=== PATIENT | male | born 1945 | race Caucasian/White ===

== ENCOUNTER 2017-07-28 06:53 | Observation (INO) ==
[2017-07-28] MEDS ORDERED: DOXOrubicin HCL 200 MG/100 ML MLS IV SCH (08:00)
[2017-07-28] MEDS ORDERED: *HR* FentaNYL (PF) 100 MCG/2 ML VIAL IVP ONE (08:04)
[2017-07-28] MEDS ORDERED: Levofloxacin 500 MG/100 ML 500 MG/100 ML BAG IVPB ONE (08:04)
[2017-07-28] MEDS ORDERED: *HR* Midazolam HCl 2 MG/2 ML VIAL IVP ONE (08:04)
[2017-07-28 08:17] LABS: Basophils % 0.2 %; Hematocrit 40.7 % (37.5-50.1); Hemoglobin 13.5 g/dL (12.9-16.9); Immature Granulocytes % 0.6 % (0-4); Lymphocytes # 0.9 K/mcL (0.6-4.6); Mean Corpuscular HGB Conc 33.2 g/dL (31.6-35.5); Mean Corpuscular Hemoglobin 31.6 pg (28.0-33.3); Mean Corpuscular Volume 95.3 fL (83.0-100.0); Mean Platelet Volume 11.1 fL (9.4-12.4); Monocytes # 0.1 K/mcL (0.0-1.3); Monocytes % 0.9 %; Red Blood Count 4.27 M/mcL (4.19-5.50); Red Cell Distribution Width 14.2 % (11.5-14.5); Segmented Neutrophils % 82.3 %
[2017-07-28 08:19] LABS: Neutrophils # 4.4 K/mcL (1.6-8.9); Platelet Count 69 K/mcL (140-400)
[2017-07-28 08:25] LABS: INR 1.4; Prothrombin Time 14.8 Seconds (9.4-12.1)
[2017-07-28 08:32] LABS: Albumin 4.2 g/dL (3.5-5.7); Albumin/Globulin Ratio 1.4 (1.1-2.2); Bilirubin,Direct 0.4 mg/dL (0.0-0.2); Bilirubin,Indirect 0.8 mg/dL (0.0-1.2); Bilirubin,Total 1.2 mg/dL (0.3-1.0); Globulin 3.1 g/dL (2.4-3.5); Total Protein 7.3 g/dL (6.4-8.9)
[2017-07-28] MEDS ORDERED: Heparin 1,000 UNITS/500 mL 500 ML ONE (08:32)
[2017-07-28] MEDS ORDERED: 0.9 % Sodium Chloride 500 ML ONE ×2 (08:32→09:01)
[2017-07-28] MEDS ORDERED: 0.9 % Sodium Chloride 1,000 ML ONE (08:50)
[2017-07-28] MEDS ORDERED: Isovue-300 50 ML VIAL IVP ONE (10:26)
[2017-07-28] MEDS ORDERED: Naloxone 0.4 MG/ML INJ IVP PRN (11:28)
[2017-07-28] MEDS ORDERED: Dextrose Gel 15 GM/37.5 ML TUBE PO PRN ×2 (11:36)
[2017-07-28] MEDS ORDERED: D5% in Water 1,000 ML IVC PRN (11:36)
[2017-07-28] MEDS ORDERED: *HR* Dextrose 50 % in Water (Syg) 50 ML SYRINGE IVP PRN (11:36)
--- NOTE | 2017-07-28 11:42 | Internal Med History&Physical ---
<Marychuy Swain Jailene - Last Filed: 07/28/17 12:25> Date of Encounter: 07/28/17 Time of Encounter: 11:39 Internal Medicine - H&P: HPI Chief complaint: TACE procedure Admitted From: Home Plans for Post Hospital Care: Home History of present illness: Mr. Crouch is a 71 year old male with hx of CAD, vitamin B12 and iron deficiency, CKD hepatic CA, myelodysplastic syndrome, DM, syncope, gout, hypertension, heart failure, cirrhosis with portal htn and aortic valve replacement in 2014. The patient was scheduled for TACE procedure for treatment of his hepatocellular Cancer. The patient is lying supine after the procedure and is comfortable. The right groin is with a 2x2 guaze and opsite. There is no bruising, erythema or drainage, the area is soft. Dorsalis pedis and posterior tibal pulses are intact. The patient is alert and oriented x 3. Resp are easy. EKG showed sinus rhythm with a left anterior fasicular block and an ant/lat TX of undetermined age, rate was 78. The patient ordered supine until 1500. Will resume diet at that time. Patient indicated that he had a fall in the winter , last year and has not been the same. He reports unresolved neck and back pain since that time. The patient indicated that he broke 1 rib thanks that time. The patient has hx of CKD, will get CMP now. History of HF, will get bnp in am. The patient has notable edema to bilat lower ext. Lungs are clear. Gentle IVF' s. Past Med Surg Social Fam HX - Past Medical History Medical history: cirrhosis, CHF, coronary artery disease, diabetes, GERD, hyperlipidemia, hypertension, myocardial infarction, valvular heart disease, other Additional medical history: MDS, Thrombocytopenia Psychiatric history: anxiety - Past Surgical History Surgical History: angioplasty/stent Additional surgical history: STAS CAROTID ENDARTECTOMY, CABG X2, AORTIC VALVE REPLACED - Social History Smoking Status: Never smoker Smokeless Tobacco Status: No Alcohol use: none Drug use: none Internal Medicine - H&P: Meds RX: Cholecalciferol (Vitamin D3) [Vitamin D] 1,000 unit PO BID 11/21/14 [History ] RX: Insulin Aspart Prot/Insuln Asp [Novolog Mix 70-30 Flexpen Syrn] 43 unit SQ DAILY 11/21/14 [History] RX: Nitroglycerin [Nitrostat] 0.4 mg SL PRN PRN 11/21/14 [History] RX: Nadolol 20 mg PO DAILY 04/07/15 [History] RX: diazePAM [Valium] 5 mg PO BID PRN 06/21/15 [History] RX: Isosorbide DInitrate [Isosorbide Dinitrate] 30 mg PO BID 02/15/17 [History] RX: Docusate [Colace] 100 mg PO BID PRN capsule 02/19/17 [Rx] RX: Lidocaine Patch [Lidoderm 5% patch] 2 each TP DAILY adh..patch 02/19/17 [Rx ] Captopril [Capoten] 25 mg PO BID 04/15/17 [History] Potassium Chloride [Klor-Con 10] 10 meq PO DAILY 04/15/17 [History] RX: Promethazine [Phenergan] 50 mg PO DAILY #2 tablet 05/13/17 [Rx] 3 Allergy/AdvReac Type Severity Reaction Status Date / Time carvedilol [From Coreg] Allergy Unknown Gastrointestinal Verified 06/18/17 12:03 Upset Penicillins Allergy Unknown Blister Verified 06/18/17 12:03 atenolol Allergy Rash Verified 06/18/17 12:03 All Systems PM: A 10-system review of systems was performed and is negative for pertinent findings except as documented above in the HPI. - Constitutional Constitutional: no chills, no fever(s), no night sweats - EENT Eyes: no change in vision, no discharge, no pain, no photophobia Ears: no ear discharge, no ear pain, no tinnitus Nose, mouth and throat: no dysphagia, no nasal discharge, no neck pain, no sore throat - Cardiovascular Cardiovascular ROS IM: no chest pain, no diaphoresis, no dyspnea, no lightheadedness, no palpitations, no syncope - Respiratory Respiratory: no cough, no dyspnea, no wheezing, no excessive phlegm production - Gastrointestinal Gastrointestinal: no abdominal pain, no diarrhea, no hematemesis, no hematochezia, no melena, no nausea, no vomiting - Musculoskeletal Musculoskeletal ROS IM: no numbness, no tingling - Integumentary Integumentary IM: no rash, no unusual bruising - Neurological Neurological ROS: no confusion, no convulsions, no focal weakness, no numbness, no tingling, no tremor(s) - Hematologic/Lymphatic Hematologic/Lymphatic: no easy bruising - Constitutional Vitals: Temp Pulse Resp BP Pulse Ox 97.9 F 88 16 144/79 93 07/28/17 11:03 07/28/17 11:03 07/28/17 11:03 07/28/17 11:03 07/28/17 11:03 General appearance: Present: A&O X 3 - Head Head exam: Present: atraumatic, normocephalic - Eye Eye exam: Present: PERRL, conjuntiva pink, sclera anicteric Pupils: Present: PERRL - Neck Neck exam general surgery: Present: supple, trachea midline. Absent: lymphadenopathy - Respiratory Respiratory exam: Present: CTAB. Absent: accessory muscle use, rales, rhonchi, wheezes - Cardiovascular Cardiovascular exam: Present: RRR, +S1, +S2. Absent: diastolic murmur, gallop, rubs, systolic murmur - GI/Abdominal GI/Abdominal exam: Present: normal bowel sounds, soft, no peritoneal signs. Absent: distended, tenderness - Extremities Exam Extremities exam: Present: normal inspection (Right groin with d/d , no drainage ), pedal edema (1-2+ pitting edema), warm, radial pulses palpable and symmetrical. Absent: calf tenderness, cyanotic - Neurological Exam Neurological exam: Present: CN II-XII intact, oriented X3, no focal deficits. Absent: pronater drift, facial droop, speech deficit - Skin Skin exam: Present: dry, intact Internal Med - H&P Results - Labs CBC & Chem 7: 07/28/17 08:04 Labs: Short CBC 07/28/17 Range/Units 08:04 WBC 5.4 (4.3-11.1) K/mcL Hgb 13.5 (12.9-16.9) g/dL Hct 40.7 (37.5-50.1) % Plt Count 69 L (140-400) K/mcL Neutrophils # 4.4 (1.6-8.9) K/mcL Liver Function 07/28/17 Range/Units 08:04 Total Bilirubin 1.2 H (0.3-1.0) mg/dL Direct Bilirubin 0.4 H (0.0-0.2) mg/dL AST 25 (13-39) Units/L ALT 15 (7-52) Units/L Alkaline Phosphatase 63 (34-104) Units/L Albumin 4.2 (3.5-5.7) g/dL - Assessment and plan (1) Hepatocellular carcinoma Current Visit: Yes Status: Acute Assessment and plan: TACE procedure with IR today-Right groin entry wound with D/D. Supine until 1500 Pain control-Oxycodone po prn Q4H (2) CKD (chronic kidney disease) stage 3, GFR 30-59 ml/min Current Visit: No Status: Chronic Assessment and plan: Will get cmp now Monitor daily labs Last creat was 1.31, and bun 32 on (07/16/2017) (3) HTN (hypertension) Current Visit: No Status: Acute Assessment and plan: Bp is 144/79, marginally uncontrolled, Home meds:Nadalol Goal is less than 140/80 Qualifiers: Hypertension type: essential hypertension Qualified Code(s): I10 - Essential (primary) hypertension (4) Chronic diastolic heart failure Current Visit: No Status: Chronic Assessment and plan: BNP in am Bilat lower extremity edema is present, the patient ls are clear at this time gentle IVF's (5) Cirrhosis Current Visit: Yes Status: Chronic Assessment and plan: Continue outpatient mgmt. Monitor daily labs while inpatient Qualifiers: Hepatic cirrhosis type: alcoholic cirrhosis Ascites presence: unspecified Qualified Code(s): K70.30 - Alcoholic cirrhosis of liver without ascites (6) Diabetes Current Visit: Yes Status: Chronic Assessment and plan: DM is uncontrolled. The patient bs was 260 on arrival AC/HS blood sugars, Humalog-insulin with moderate sliding scale coverage. Monitor daily labs Get HGB A1C in am Qualifiers: Diabetes mellitus type: type 2 Diabetes mellitus half-way insulin use: with terminal supervisor use Diabetes mellitus complication status: with unspecified complications Qualified Code(s): E11.8 - Type 2 diabetes mellitus with unspecified complications; Z79.4 - truck terminal manager (current) use of insulin - Time Spent With Patient Total time spent is greater than 50% in coordination of care (as documented) at patient's floor/unit and/or counseling patient: 25 - 35 minutes <Hiren Vincent - Last Filed: 07/28/17 13:33> Date of Encounter: 07/28/17 Internal Medicine - H&P: HPI History of present illness: Mr. Crouch is a 71 year old male All Systems PM: A 10-system review of systems was performed and is negative for pertinent findings except as documented above in the HPI. - Constitutional Vitals: Temp Pulse Resp BP Pulse Ox 97.9 F 86 16 137/75 93 07/28/17 11:03 07/28/17 13:12 07/28/17 11:20 07/28/17 13:12 07/28/17 13:12 Internal Med - H&P Results - Labs CBC & Chem 7: 07/28/17 08:04 07/28/17 12:45 Labs: Short CBC 07/28/17 Range/Units 08:04 WBC 5.4 (4.3-11.1) K/mcL Hgb 13.5 (12.9-16.9) g/dL Hct 40.7 (37.5-50.1) % Plt Count 69 L (140-400) K/mcL Neutrophils # 4.4 (1.6-8.9) K/mcL BMP 07/28/17 12:45 Sodium 136 Potassium 4.9 Chloride 100 Carbon Dioxide 30 H BUN 33 H Creatinine 1.33 H Glucose 254 H Calcium 9.2 Liver Function 07/28/17 07/28/17 Range/Units 08:04 12:45 Total Bilirubin 1.2 H 1.3 H (0.3-1.0) mg/dL Direct Bilirubin 0.4 H (0.0-0.2) mg/dL AST 25 23 (13-39) Units/L ALT 15 14 (7-52) Units/L Alkaline Phosphatase 63 63 (34-104) Units/L Albumin 4.2 3.9 (3.5-5.7) g/dL - Attending Attestation I have seen and evaluated the patient. I have performed my own physical examination. I have discussed the case with the admitting REFERRAL COORDINATOR. I agree with the REFERRAL COORDINATOR's assessment and plan as documented in her H&P. Briefly, patient has history of hepatocellular carcinoma s/p TACE procedure by IR today. Patient will be kept in hospital overnight for observation and pain control post- procedure. He is doing well after procedure. He has no complaints at this time. Pain is controlled at this time. Review of labwork shows CKD at baseline and mild hyperglycemia. We will start accuchecks and SSI QID AC/HS. We will check labwork in AM. - Time Spent With Patient Total time spent is greater than 50% in coordination of care (as documented) at patient's floor/unit and/or counseling patient:
--- NOTE | 2017-07-28 12:28 | Pre-Sedation Evaluation ---
Pre-sedation evaluation - Pre-sedation checklist Date of procedure: 07/28/17 Procedure: chemo emobolizaition Recent Vitals: Last Vital Signs Temp 97.9 F 07/28/17 11:03 Pulse 89 07/28/17 11:20 Resp 16 07/28/17 11:20 BP 137/79 07/28/17 11:20 Pulse Ox 92 07/28/17 11:20 H&P (including ROS) documented in medical record: Yes Previous reaction to sedatives/anesthetics: No Dietary Status: NPO after Midnight Airway Assessment: Patient can open mouth completely, TMJ function normal, Micrognathia (under-bite, receding chin) absent, Neck with adequate range of motion Possible difficult airway: No ASA Classification *see protocol: CLASS III-Severe systemic disease Plan of Care: Pt appropriate candidate for procedure/moderate/conscious sedation , Risks/benefits of procedure/sedation discussed w/ patient/family, If not NPO; Risk of intake outweiged by necessity to perform procedure
--- NOTE | 2017-07-28 12:28 | History & Physical Report ---
Date of Encounter: 07/28/17 Time of Encounter: 08:15 24 Hour HP Update - Instructions Instructions: If the History and Physical is less than 30 days old and was completed prior to A.M. admission and or procedure and has NOT been updated on calendar day of procedure please complete this update prior to performing procedure. - Update Patient reports changes in Medical Condition: No Changes in examination, assessment, or condition: No Changes in Medication: No Preop tests/diagnostics Reviewed: Yes Surgery Remains Indicated: Yes Consent for Planned Operative Procedure(s) Verified: Yes - Pre-Operative Checklist Preoperative Checklist Indicated: Yes Prophylactic Antibiotic Ordered: Yes Home Medications Include Beta Rodolfo: Yes Beta Rodolfo Taken Today (Day of Surgery): Yes Beta Rodolfo Taken Yesterday (Day Prior to Surgery): Yes Is VTE Prophylaxis Indicated?: NO
--- NOTE | 2017-07-28 12:31 | IR Procedure Note ---
Date of procedure: 07/28/17 Consent Obtained: Written consent Timeout: Correct patient and procedure verified, Correct site verified, Time out performed, Skin prep completed Local anesthetic: Lidocaine 1% Indications: Multifocal HCC, cirrhosis Procedure Performed: Trans-arterial drug eluting bead chemoembolization Was there an advertising assistant present: No Site/Technique: Right groin access. Tolerated well. Right and left hepatic lobe embo. Results/Findings: Accessed separate right lobe branches, and main left. Estimated blood loss (cc): 3 Complications: None; Tolerated procedure well Post Procedure Treatment Plan: Monitoring overnight. Appreciate Hospitialists assitance. Specimen: N/a
[2017-07-28 13:19] LABS: Alanine Aminotransferase 14 Units/L (7-52); Albumin 3.9 g/dL (3.5-5.7); Albumin/Globulin Ratio 1.3 (1.1-2.2); Alkaline Phosphatase 63 Units/L (34-104); Aspartate Amino Transferase 23 Units/L (13-39); BUN/Creatinine Ratio 25 (6-26); Bilirubin,Total 1.3 mg/dL (0.3-1.0); Blood Urea Nitrogen 33 mg/dL (8-23); Calcium 9.2 mg/dL (8.6-10.3); Carbon Dioxide 30 mEq/L (23-29); Chloride 100 mEq/L (98-107); Glucose 254 mg/dL (70-105); Osmolality,Calculated 298 (280-300); Potassium 4.9 mEq/L (3.5-5.1); Sodium 136 mEq/L (136-145); Total Protein 6.9 g/dL (6.4-8.9); eGFR For African Americans > 60 (> 60); eGFR For Non-African Americans 53 (> 60)
[2017-07-28] MEDS: Ringers Solution, Lactated 500 ML IVC SCH (13:58)
[2017-07-28] MEDS ORDERED: GI Cocktail 40 ML EACH PO ONE (14:20)
[2017-07-28] MEDS: Insulin LISPRO 300 UNITS/3 ML VIAL SQ SCH (17:54)
[2017-07-28] MEDS: *HR* OxyCODONE/APAP 10/325 TABLET PO PRN (20:37)
[2017-07-28] MEDS ORDERED: Insulin LISPRO 300 UNITS/3 ML VIAL SQ SCH (21:00)
[2017-07-29] MEDS: *HR* OxyCODONE/APAP 10/325 TABLET PO PRN (00:42)
[2017-07-29] MEDS: Ringers Solution, Lactated 500 ML IVC SCH (05:48)
[2017-07-29 06:45] LABS: Basophils % 0.1 %; Eosinophils % 0.1 %
[2017-07-29 06:47] LABS: Hematocrit 40.3 % (37.5-50.1); Hemoglobin 13.4 g/dL (12.9-16.9); Immature Granulocytes % 0.4 % (0-4); Lymphocytes # 1.2 K/mcL (0.6-4.6); Lymphocytes % 16.7 %; Mean Corpuscular HGB Conc 33.3 g/dL (31.6-35.5); Mean Corpuscular Hemoglobin 31.9 pg (28.0-33.3); Mean Platelet Volume 11.2 fL (9.4-12.4); Monocytes # 0.5 K/mcL (0.0-1.3); Monocytes % 6.7 %; Neutrophils # 5.2 K/mcL (1.6-8.9); Red Cell Distribution Width 14.5 % (11.5-14.5)
[2017-07-29 06:50] LABS: Platelet Count 62 K/mcL (140-400)
[2017-07-29 07:04] LABS: BUN/Creatinine Ratio 25 (6-26); Blood Urea Nitrogen 32 mg/dL (8-23); Calcium 9.2 mg/dL (8.6-10.3); Carbon Dioxide 28 mEq/L (23-29); Chloride 100 mEq/L (98-107); Glucose 209 mg/dL (70-105); Osmolality,Calculated 297 (280-300); Potassium 4.4 mEq/L (3.5-5.1); Sodium 137 mEq/L (136-145); eGFR For African Americans > 60 (> 60); eGFR For Non-African Americans 56 (> 60)
[2017-07-29 08:54] LABS: Estimated Average Glucose 166 mg/dl; Hemoglobin A1C 7.4 %
[2017-07-29] MEDS: Insulin LISPRO 300 UNITS/3 ML VIAL SQ SCH ×2 (09:59→12:09)
[2017-07-29] MEDS ORDERED: Furosemide 40 MG TABLET PO SCH (10:00)
[2017-07-29 11:44] VITALS: BP 134/76
--- NOTE | 2017-07-29 13:10 | Internal Med Progress Note ---
Date of Encounter: 07/29/17 Time of Encounter: 13:00 - Assessment and plan (1) Hepatocellular carcinoma Status: Acute Assessment and plan: s/ P TACE procedure. cleared by IR for discharge today (2) HTN (hypertension) Status: Acute Assessment and plan: Continue naldolol Qualifiers: Hypertension type: essential hypertension Qualified Code(s): I10 - Essential (primary) hypertension (3) MDS (myelodysplastic syndrome), low grade Status: Chronic Assessment and plan: Outpatient follow up (4) CKD (chronic kidney disease) stage 3, GFR 30-59 ml/min Status: Chronic Assessment and plan: Saranya on CKD. Improving with IV fluids (5) Chronic diastolic heart failure Status: Chronic Assessment and plan: Stable. Continue PO lasix (6) Diabetes Status: Chronic Assessment and plan: Continue insulin Qualifiers: Diabetes mellitus type: type 2 Diabetes mellitus halfway insulin use: with halfway use Diabetes mellitus complication status: with unspecified complications Qualified Code(s): E11.8 - Type 2 diabetes mellitus with unspecified complications; Z79.4 - supervisor intermediates (current) use of insulin (7) Thrombocytopenia Status: Acute Assessment and plan: Monitor CBC (8) DVT prophylaxis Status: Acute Assessment and plan: SCDs - Time Spent With Patient Total time spent is greater than 50% in coordination of care (as documented) at patient's floor/unit and/or counseling patient: - Subjective Interval history: No acute events overnight - Constitutional Vitals: Temp Pulse Resp BP Pulse Ox 97.6 F 83 16 134/76 93 07/29/17 11:37 07/29/17 11:37 07/29/17 11:37 07/29/17 11:37 07/29/17 11:37 General appearance: Present: A&O X 3 - Head Head exam: Present: atraumatic, normocephalic - Eye Eye exam: Present: PERRL, conjuntiva pink, sclera anicteric Pupils: Present: PERRL - Neck Neck exam general surgery: Present: supple, trachea midline. Absent: lymphadenopathy - Respiratory Respiratory exam: Present: CTAB. Absent: accessory muscle use, rales, rhonchi, wheezes - Cardiovascular Cardiovascular exam: Present: RRR, +S1, +S2. Absent: diastolic murmur, gallop, rubs, systolic murmur - GI/Abdominal GI/Abdominal exam: Present: normal bowel sounds, soft, no peritoneal signs. Absent: distended, tenderness - Extremities Exam Extremities exam: Present: warm, radial pulses palpable and symmetrical. Absent : calf tenderness, cyanotic, pedal edema - Neurological Exam Neurological exam: Present: CN II-XII intact, oriented X3, no focal deficits. Absent: pronater drift, facial droop, speech deficit - Skin Skin exam: Present: dry, intact Internal Medicine: Result - Labs CBC & Chem 7: 07/29/17 05:46 07/29/17 05:46 Labs: Short CBC 07/29/17 Range/Units 05:46 WBC 6.9 (4.3-11.1) K/mcL Hgb 13.4 (12.9-16.9) g/dL Hct 40.3 (37.5-50.1) % Plt Count 62 L (140-400) K/mcL Neutrophils # 5.2 (1.6-8.9) K/mcL BMP 07/28/17 07/29/17 12:45 05:46 Sodium 136 137 Potassium 4.9 4.4 Chloride 100 100 Carbon Dioxide 30 H 28 BUN 33 H 32 H Creatinine 1.33 H 1.27 Glucose 254 H 209 H Calcium 9.2 9.2 Liver Function 07/28/17 Range/Units 12:45 Total Bilirubin 1.3 H (0.3-1.0) mg/dL AST 23 (13-39) Units/L ALT 14 (7-52) Units/L Alkaline Phosphatase 63 (34-104) Units/L Albumin 3.9 (3.5-5.7) g/dL - ABG Interpretation ABG results: PT/INR, D-dimer PT 14.8 Seconds (9.4-12.1) H 07/28/17 08:04 - Impressions Impressions Abdomen Arteriogram 07/28/17 00:00 IMPRESSION: Multisegmental transarterial chemoembolization using drug-eluting beads. The drug-eluting beads were 100-300 micron LC beads labeled with 50 mg of doxorubicin for an expected dose of approximately 35 mg. D/ / 07/28/2017 16:07:04 Carlos Dennis MD / etienne Interpreting Provider: Carlos Dennis MD Embolization 07/28/17 00:00 IMPRESSION: Multisegmental transarterial chemoembolization using drug-eluting beads. The drug-eluting beads were 100-300 micron LC beads labeled with 50 mg of doxorubicin for an expected dose of approximately 35 mg. D/ / 07/28/2017 16:07:04 Carlos Dennis MD / etienne Interpreting Provider: Carlos Dennis MD Embolization 07/28/17 00:00 IMPRESSION: Multisegmental transarterial chemoembolization using drug-eluting beads. The drug-eluting beads were 100-300 micron LC beads labeled with 50 mg of doxorubicin for an expected dose of approximately 35 mg. D/ / 07/28/2017 16:07:04 Carlos Dennis MD / etienne Interpreting Provider: Carlos Dennis MD Guidance Needle Placement Ultrasound 07/28/17 00:00 IMPRESSION: Multisegmental transarterial chemoembolization using drug-eluting beads. The drug-eluting beads were 100-300 micron LC beads labeled with 50 mg of doxorubicin for an expected dose of approximately 35 mg. D/ / 07/28/2017 16:07:04 Carlos Dennis MD / etienne Interpreting Provider: Carlos Dennis MD Consult Discharge Plan - Plan Referrals: Jennyfer Spence, [facility] [Advanced Practice Nurse] - 08/04/17 11:00 am Prescriptions: OxyCODONE/APAP 10/325 [Percocet 10/325 MG] 1 each PO Q4HR PRN 4 Days #14 tablet PRN Reason: Pain Ondansetron HCl [Zofran] 4 mg PO Q8HR PRN 10 Days #30 tab PRN Reason: Nausea
--- NOTE | 2017-07-29 15:19 | Discharge Summary ---
Orders not resulted at time of discharge: Pending orders 07/30/17 04:00 Basic Metabolic Panel AM 0400 Complete Blood Count [HEME] AM 0400 07/31/17 04:00 Basic Metabolic Panel AM 0400 Complete Blood Count [HEME] AM 0400 Date of Encounter: 07/29/17 Time of Encounter: 15:00 - Discharge Diagnosis (1) Hepatocellular carcinoma Priority: Primary Status: Acute Assessment and Plan: 71 year old male with hx of CAD, vitamin B12 and iron deficiency, CKD hepatic CA, myelodysplastic syndrome, DM, syncope, gout, hypertension, heart failure, cirrhosis with portal htn and aortic valve replacement in 2014. The patient was scheduled for TACE procedure for treatment of his hepatocellular Cancer. He underwent TACE procedure o07/28/17. He was monitored overnight and developed no acute complications. He had Saranya on admission which resolved with IV fluid hydration. He was discharged in a stable condition to follow up outpatient with oncology (2) HTN (hypertension) Priority: Secondary Status: Acute Qualifiers: Hypertension type: essential hypertension Qualified Code(s): I10 - Essential (primary) hypertension (3) MDS (myelodysplastic syndrome), low grade Priority: Secondary Status: Chronic (4) CKD (chronic kidney disease) stage 3, GFR 30-59 ml/min Priority: Secondary Status: Chronic (5) Chronic diastolic heart failure Priority: Secondary Status: Chronic (6) Diabetes Priority: Secondary Status: Chronic Qualifiers: Diabetes mellitus type: type 2 Diabetes mellitus fpc insulin use: with exterminator termite use Diabetes mellitus complication status: with unspecified complications Qualified Code(s): E11.8 - Type 2 diabetes mellitus with unspecified complications; Z79.4 - longterm (current) use of insulin (7) Thrombocytopenia Priority: Secondary Status: Acute (8) DVT prophylaxis Priority: Secondary Status: Acute Hospital course: Mr. Crouch is a 71 year old male - Time Spent with Patient Total time spent providing and/or coordinating discharge services: - Discharge Medications Prescriptions: OxyCODONE/APAP 10/325 [Percocet 10/325 MG] 1 each PO Q4HR PRN 4 Days #14 tablet PRN Reason: Pain Ondansetron HCl [Zofran] 4 mg PO Q8HR PRN 10 Days #30 tab PRN Reason: Nausea Home Medications: Insulin Aspart Prot/Insuln Asp [Novolog Mix 70-30 Flexpen Syrn] 40 unit SQ BID 11/21/14 [History] Nitroglycerin [Nitrostat] 0.4 mg SL PRN PRN 11/21/14 [History] Nadolol 20 mg PO DAILY 04/07/15 [History] diazePAM [Valium] 5 mg PO BID PRN 06/21/15 [History] Isosorbide DInitrate [Isosorbide Dinitrate] 30 mg PO BID 02/15/17 [History] Captopril [Capoten] 25 mg PO BID 04/15/17 [History] Potassium Chloride [Klor-Con 10] 20 meq PO BID 04/15/17 [History] Cholecalciferol (D-3) [Vitamin D] 1,000 unit PO BID 07/29/17 [History] Furosemide [Lasix] 40 mg PO BID 07/29/17 [History] Ondansetron HCl [Zofran] 4 mg PO Q8HR PRN 10 Days #30 tab 07/29/17 [Rx] OxyCODONE/APAP 10/325 [Percocet 10/325 MG] 1 each PO Q4HR PRN 4 Days #14 tablet 07/29/17 [Rx] Allergies/Adverse Reactions: 3 Allergy/AdvReac Type Severity Reaction Status Date / Time atenolol Allergy Rash Verified 07/29/17 10:14 carvedilol [From Coreg] AdvReac Unknown Gastrointestinal Verified 07/29/17 10:14 Upset Penicillins AdvReac Unknown Blister Verified 07/29/17 10:14 Date of admission: 07/28/17 11:28 Primary care physician: Jeronimo Wu MD - Constitutional Vitals: Temp Pulse Resp BP Pulse Ox 97.6 F 83 16 134/76 93 07/29/17 11:37 07/29/17 11:37 07/29/17 11:37 07/29/17 11:37 07/29/17 11:37 General appearance: Present: A&O X 3 - Head Head exam: Present: atraumatic, normocephalic - Eye Eye exam: Present: PERRL, conjuntiva pink, sclera anicteric Pupils: Present: PERRL - Neck Neck exam general surgery: Present: supple, trachea midline. Absent: lymphadenopathy - Respiratory Respiratory exam: Present: CTAB. Absent: accessory muscle use, rales, rhonchi, wheezes - Cardiovascular Cardiovascular exam: Present: RRR, +S1, +S2. Absent: diastolic murmur, gallop, rubs, systolic murmur - GI/Abdominal GI/Abdominal exam: Present: normal bowel sounds, soft, no peritoneal signs. Absent: distended, tenderness - Extremities Exam Extremities exam: Present: warm, radial pulses palpable and symmetrical. Absent : calf tenderness, cyanotic, pedal edema - Neurological Exam Neurological exam: Present: CN II-XII intact, oriented X3, no focal deficits. Absent: pronater drift, facial droop, speech deficit - Skin Skin exam: Present: dry, intact - Patient Status Disposition: Home, Self-Care - Discharge Instructions Follow Up With: Jennyfer Spence, BIOPHYSICS TEACHER [Advanced Practice Nurse] - 08/04/17 11:00 am
== END 2017-07-29 15:49 | disposition home or self-care (01) ==
LOC: 3ANU 06:53 → INTRAD 06:53 → 3ANU 10:47
PROVIDERS: ADMIT Nurse Practitioner Family; ATTEND Internal Medicine

== ENCOUNTER 2017-12-24 07:05 | Observation (INO) ==
[2017-12-24] MEDS ORDERED: Heparin 1,000 UNITS/500 mL 1,000 ML ONE (07:43)
[2017-12-24] MEDS ORDERED: 0.9 % Sodium Chloride 500 ML ONE ×4 (07:43→09:35)
[2017-12-24] MEDS ORDERED: *HR* Midazolam HCl 2 MG/2 ML VIAL IVP ONE ×2 (07:48→09:24)
[2017-12-24] MEDS ORDERED: *HR* FentaNYL (PF) 100 MCG/2 ML VIAL IVP ONE ×2 (07:48→09:24)
[2017-12-24] MEDS ORDERED: Furosemide 20 MG/2 ML VIAL IVP ONE (09:46)
[2017-12-24] MEDS ORDERED: Isovue-300 50 ML VIAL IVP ONE ×4 (09:51→09:52)
[2017-12-24] MEDS ORDERED: *HR* HYDROmorphone 2 MG/ML SYRINGE IVP ONE (10:10)
[2017-12-24] MEDS ORDERED: *HR* OxyCODONE/APAP 10/325 TABLET PO ONE (10:36)
--- NOTE | 2017-12-24 10:36 | Pre-Sedation Evaluation ---
Pre-sedation evaluation - Pre-sedation checklist Date of procedure: 12/24/17 Procedure: Y-90 mapping Recent Vitals: Last Vital Signs Temp 97.1 F L 12/24/17 07:43 Pulse 105 12/24/17 10:08 Resp 18 12/24/17 07:43 BP 136/65 12/24/17 10:08 Pulse Ox 96 12/24/17 10:08 H&P (including ROS) documented in medical record: Yes Previous reaction to sedatives/anesthetics: No Dietary Status: NPO after Midnight Airway Assessment: Patient can open mouth completely, TMJ function normal, Micrognathia (under-bite, receding chin) absent, Neck with adequate range of motion Possible difficult airway: No ASA Classification *see protocol: CLASS III-Severe systemic disease Plan of Care: Pt appropriate candidate for procedure/moderate/conscious sedation, Risks/benefits of procedure/sedation discussed w/ patient/family, If not NPO; Risk of intake outweiged by necessity to perform procedure
--- NOTE | 2017-12-24 10:37 | History & Physical Report ---
Date of Encounter: 12/24/17 Time of Encounter: 08:00 24 Hour HP Update - Instructions Instructions: If the History and Physical is less than 30 days old and was completed prior to A.M. admission and or procedure and has NOT been updated on calendar day of procedure please complete this update prior to performing procedure. - Update Patient reports changes in Medical Condition: No Changes in examination, assessment, or condition: No Changes in Medication: No Preop tests/diagnostics Reviewed: Yes Surgery Remains Indicated: Yes Consent for Planned Operative Procedure(s) Verified: Yes - Pre-Operative Checklist Preoperative Checklist Indicated: No Prophylactic Antibiotic Ordered: No Home Medications Include Beta Rodolfo: Yes Beta Rodolfo Taken Today (Day of Surgery): Yes Beta Rodolfo Taken Yesterday (Day Prior to Surgery): Yes Is VTE Prophylaxis Indicated?: NO
--- NOTE | 2017-12-24 10:39 | IR Procedure Note ---
Date of procedure: 12/24/17 Consent Obtained: Written consent Timeout: Correct patient and procedure verified, Correct site verified, Time out performed, Skin prep completed Local anesthetic: Lidocaine 1% Indications: Multifocal HCC Procedure Performed: [id number]. Was there an press operator assistant present: No Site/Technique: Left groin access. No coils used. MAA injected into R hepatic artery Results/Findings: Tolerated,some anginal pain.EKG evaluated with cardiology.Nitro taken.Impro Estimated blood loss (cc): 1 Complications: None; Tolerated procedure well Post Procedure Treatment Plan: Observation. D/w Dr. Humphries. Appreciate assistance! Specimen: N/a
--- NOTE | 2017-12-24 13:44 | Internal Med History&Physical ---
Date of Encounter: 12/24/17 Time of Encounter: 13:41 Internal Medicine - H&P: HPI Chief complaint: s/p Y-90 embolization in IR TACE Admitted From: Home Plans for Post Hospital Care: Home History of present illness: Mr. Crouch is a 72 year old male with a h/o HCC who follows with [place] [facility]. Additional history includes anxiety, insomnia, SATINDER, CHF, atherosclerosis, valvular disease, GERD, CAD, thrombocytopenia, cirrhosis, esophageal varices. He presents to [facility] S/P TACE in interventional radiology. He is being admitted to observation for overnight monitoring. He denies any abdominal pain, nausea, vomiting shortness of breath, hematoma left groin insertion site, dizziness, fatigue, chest pain. Review of systems overall unremarkable. He will be admitted and treated for nausea and pain. Past Med Surg Social Fam HX - Past Medical History Medical history: cirrhosis, CHF, coronary artery disease, diabetes, GERD, hyperlipidemia, hypertension, myocardial infarction, valvular heart disease, other Additional medical history: MDS, Thrombocytopenia Psychiatric history: anxiety - Past Surgical History Additional surgical history: STAS CAROTID ENDARTECTOMY, CABG X2, AORTIC VALVE REPLACED - Social History Smoking Status: Former smoker Smokeless Tobacco Status: No Alcohol use: none Drug use: none - Family History Mother Living Status: Hx Family Cardiac Disorders: No Hx Family Respiratory Disorders: No Hx Family Cancer: No Hx Family GI Disorders: No Hx Family Endocrine Disorder: No Hx Family Neuromuscular Disorders: No Hx Family Neurologic Disorders: Yes (Dementia) Hx Family HEENT Disorders: No Hx Family Autoimmune Disorders: No Father Living Status: Internal Medicine - H&P: Meds Insulin Aspart Prot/Insuln Asp [Novolog Mix 70-30 Flexpen Syrn] 20 unit SQ BID 11/21/14 [History] Nitroglycerin [Nitrostat] 0.4 mg SL PRN PRN 11/21/14 [History] diazePAM [Valium] 5 mg PO BID PRN 06/21/15 [History] Isosorbide DInitrate [Isosorbide Dinitrate] 30 mg PO BID 02/15/17 [History] Captopril [Capoten] 50 mg PO BID 04/15/17 [History] Potassium Chloride [Klor-Con 10] 20 meq PO BID 04/15/17 [History] Cholecalciferol (D-3) [Vitamin D] 1,000 unit PO BID 07/29/17 [History] Furosemide [Lasix] 40 mg PO BID 07/29/17 [History] Diltiazem HCl [Cardizem] 30 mg PO DAILY 11/24/17 [History] Allergy/AdvReac Type Severity Reaction Status Date / Time atenolol Allergy Rash Verified 08/04/17 10:29 carvedilol [From Coreg] AdvReac Unknown Gastrointestinal Verified 08/04/17 10:29 Upset Penicillins AdvReac Unknown Blister Verified 08/04/17 10:29 IVP dye Allergy Difficulty Uncoded 10/16/17 11:54 Breathing All Systems PM: A 10-system review of systems was performed and is negative for pertinent findings except as documented above in the HPI. - Constitutional Constitutional: no chills, no fever(s), no night sweats - EENT Eyes: no change in vision, no discharge, no pain, no photophobia Ears: no ear discharge, no ear pain, no tinnitus Nose, mouth and throat: no dysphagia, no nasal discharge, no neck pain, no sore throat - Cardiovascular Cardiovascular ROS IM: no chest pain, no diaphoresis, no dyspnea, no lightheadedness, no palpitations, no syncope - Respiratory Respiratory: no cough, no dyspnea, no wheezing, no excessive phlegm production - Gastrointestinal Gastrointestinal: no abdominal pain, no diarrhea, no hematemesis, no hematochezia, no melena, no nausea, no vomiting - Musculoskeletal Musculoskeletal ROS IM: no numbness, no tingling - Integumentary Integumentary IM: no rash, no unusual bruising - Neurological Neurological ROS: no confusion, no convulsions, no focal weakness, no numbness, no tingling, no tremor(s) - Hematologic/Lymphatic Hematologic/Lymphatic: no easy bruising - Constitutional Vitals: Temp Pulse Resp BP Pulse Ox 97.1 F L 104 16 146/60 97 12/24/17 07:43 12/24/17 10:45 12/24/17 10:45 12/24/17 10:45 12/24/17 10:45 General appearance: Present: A&O X 3 Exam: see exam - Head Head exam: Present: atraumatic, normocephalic - Eye Eye exam: Present: PERRL, conjuntiva pink, sclera anicteric Pupils: Present: PERRL Additional comments: [place] - Neck Neck exam general surgery: Present: supple, trachea midline. Absent: lymphadenopathy - Respiratory Respiratory exam: Present: CTAB. Absent: accessory muscle use, rales, rhonchi, wheezes - Cardiovascular Cardiovascular exam: Present: RRR, +S1, +S2. Absent: diastolic murmur, gallop, rubs, systolic murmur - GI/Abdominal GI/Abdominal exam: Present: normal bowel sounds, soft, no peritoneal signs. Absent: distended, tenderness - Extremities Exam Extremities exam: Present: warm, radial pulses palpable and symmetrical. Absent: calf tenderness, cyanotic, pedal edema - Neurological Exam Neurological exam: Present: CN II-XII intact, oriented X3, no focal deficits. Absent: pronater drift, facial droop, speech deficit - Skin Skin exam: Present: dry, intact - Assessment and plan (1) Hepatocellular carcinoma Current Visit: Yes Status: Acute Assessment and plan: s/p TACE procedure Admitted for obs overnight h/o HCC; follows with [place] [facility]; continue scheduled f/u If stable overnight and ok with IR d/c in the morning bedrest per protocol 03/14 lt groin cath site EPCD's for DVT prophylaxis (2) Cirrhosis Current Visit: No Status: Chronic Assessment and plan: Cirrhosis with HCC chronic Qualifiers: Hepatic cirrhosis type: alcoholic cirrhosis Ascites presence: unspecified Qualified Code(s): K70.30 - Alcoholic cirrhosis of liver without ascites (3) HTN (hypertension) Current Visit: No Status: Acute Assessment and plan: stable, continue anti-HTN meds Qualifiers: Hypertension type: essential hypertension Qualified Code(s): I10 - Essential (primary) hypertension (4) Thrombocytopenia Current Visit: No Status: Acute Assessment and plan: in the setting of cirrhosis (5) CKD (chronic kidney disease) stage 3, GFR 30-59 ml/min Current Visit: No Status: Chronic (6) Diabetes Current Visit: No Status: Chronic Assessment and plan: start LSSIC AC/HS FSBG Qualifiers: Diabetes mellitus type: type 2 Diabetes mellitus retirement insulin use: with retirement use Diabetes mellitus complication status: with unspecified complications Qualified Code(s): E11.8 - Type 2 diabetes mellitus with unspecified complications; Z79.4 - snf (current) use of insulin (7) MDS (myelodysplastic syndrome), low grade Current Visit: No Status: Chronic Assessment and plan: continue outpatient f/u with oncology - Time Spent With Patient Total time spent is greater than 50% in coordination of care (as documented) at patient's floor/unit and/or counseling patient: 25 - 35 minutes
[2017-12-24] MEDS ORDERED: D5% in Water 1,000 ML IVC PRN (13:52)
[2017-12-24] MEDS ORDERED: *HR* Dextrose 50 % in Water (Syg) 50 ML SYRINGE IVP PRN (13:52)
[2017-12-24] MEDS ORDERED: Dextrose Gel 15 GM/37.5 ML TUBE PO PRN ×2 (13:52)
[2017-12-24] MEDS ORDERED: *HR* OxyCODONE Immed Rel 5 MG TABLET PO PRN (14:04)
[2017-12-24] MEDS ORDERED: Ondansetron 4 MG/2 ML VIAL IVP PRN (14:04)
[2017-12-24] MEDS ORDERED: Insulin Regular, Human 100 UNIT/ML SQ ONE (14:17)
[2017-12-24] MEDS: Insulin LISPRO 300 UNITS/3 ML VIAL SQ SCH (16:56)
[2017-12-24] MEDS ORDERED: diazePAM 5 MG TABLET PO ONE (21:34)
[2017-12-24] MEDS ORDERED: Insulin LISPRO 300 UNITS/3 ML VIAL SQ SCH (21:45)
[2017-12-25 06:49] VITALS: BP 115/67
[2017-12-25] MEDS: Insulin LISPRO 300 UNITS/3 ML VIAL SQ SCH (07:37)
[2017-12-25] MEDS ORDERED: Ibuprofen 400 MG TABLET PO ONE (07:51)
[2017-12-25] MEDS ORDERED: Acetaminophen 325 MG TABLET PO ONE (07:54)
--- NOTE | 2017-12-25 08:21 | Discharge Summary ---
- NOTES TO OUTPATIENT PROVIDER Notes to Outpatient Provider: Basic d/c f/u. S/P TACE for HCC Date of Encounter: 12/25/17 Time of Encounter: 08:19 - Discharge Diagnosis (1) Hepatocellular carcinoma Priority: Primary Status: Acute Assessment and Plan: s/p TACE procedure (transarterial chemotherapy embolization) Admitted for obs overnight h/o HCC; follows with [facility] [facility]; continue scheduled f/u If stable overnight and ok with IR d/c in the morning bedrest per protocol 03/14 lt groin cath site EPCD's for DVT prophylaxis 12/25/17--medications overnight. Clinical status stable. Left groin site soft nontender without hematoma. Positive palpable circulation 2+ DP/PT intact (2) Cirrhosis Priority: Secondary Status: Chronic Qualifiers: Hepatic cirrhosis type: alcoholic cirrhosis Ascites presence: unspecified Qualified Code(s): K70.30 - Alcoholic cirrhosis of liver without ascites (3) HTN (hypertension) Priority: Secondary Status: Acute Qualifiers: Hypertension type: essential hypertension Qualified Code(s): I10 - Essential (primary) hypertension (4) Thrombocytopenia Priority: Secondary Status: Acute (5) CKD (chronic kidney disease) stage 3, GFR 30-59 ml/min Priority: Secondary Status: Chronic (6) Diabetes Priority: Secondary Status: Chronic Qualifiers: Diabetes mellitus type: type 2 Diabetes mellitus 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 Crouch is a 72 year old male who is S/P transarterial chemotherapy embolization for hepatocellular carcinoma. He was admitted overnight for further monitoring S/P TACE procedure. The left groin site intact without hematoma, soft and nontender. Distal circulation remains intact. No complications noted overnight. Patient remains in stable clinical condition. Discharging home today. Continue follow-up with oncology outpatient as previously scheduled. Continue PCP follow-up as previously scheduled. Discharge discussed with: patient, nurse - Time Spent with Patient Total time spent providing and/or coordinating discharge services: Less than 30 minutes - Discharge Medications Home Medications: Insulin Aspart Prot/Insuln Asp [Novolog Mix 70-30 Flexpen Syrn] 20 unit SQ BID 11/21/14 [History] Nitroglycerin [Nitrostat] 0.4 mg SL PRN PRN 11/21/14 [History] diazePAM [Valium] 5 mg PO BID PRN 06/21/15 [History] Isosorbide DInitrate [Isosorbide Dinitrate] 30 mg PO BID 02/15/17 [History] Captopril [Capoten] 50 mg PO BID 04/15/17 [History] Potassium Chloride [Klor-Con 10] 20 meq PO BID 04/15/17 [History] Cholecalciferol (D-3) [Vitamin D] 1,000 unit PO BID 07/29/17 [History] Furosemide [Lasix] 40 mg PO BID 07/29/17 [History] Diltiazem HCl [Cardizem] 30 mg PO DAILY 11/24/17 [History] Allergies/Adverse Reactions: Allergy/AdvReac Type Severity Reaction Status Date / Time atenolol Allergy Rash Verified 08/04/17 10:29 carvedilol [From Coreg] AdvReac Unknown Gastrointestinal Verified 08/04/17 10:29 Upset Penicillins AdvReac Unknown Blister Verified 08/04/17 10:29 IVP dye Allergy Difficulty Uncoded 10/16/17 11:54 Breathing Date of admission: 12/24/17 15:46 Primary care physician: Jeronimo Wu MD Discharging clinician: Rc Recinos Anticipated date of discharge: 12/25/17 - Constitutional Vitals: Temp Pulse Resp BP Pulse Ox 97.5 F L 89 16 115/67 95 12/25/17 06:39 12/25/17 06:39 12/25/17 06:39 12/25/17 06:39 12/25/17 06:39 General appearance: Present: A&O X 3 Exam: PHYSICAL EXAMINATION: GENERAL: Elderly male who is alert and oriented 3, in no acute distress. HEENT: Head is normocephalic and atraumatic. Extraocular muscles are intact. Pupils are equal, round, and reactive to light and accommodation. NECK: Supple. No carotid bruits. No lymphadenopathy or thyromegaly. LUNGS: Clear to auscultation B/L AP and L. HEART: Regular rate and rhythm, S1, S2 without murmur. ABDOMEN: Soft, nontender, and nondistended. Positive bowel sounds. No hepatosplenomegaly was noted. EXTREMITIES: Without any cyanosis, clubbing, rash, lesions or edema. Left groin sheath site with closure device intact, soft, nontender with distal circulation is intact NEUROLOGIC: Cranial nerves II through XII are grossly intact. PSYCHIATRIC: Appropriate affect, denies SI/HI, without agitation or anxiety SKIN: No ulceration or induration present. - Patient Status Disposition: Home, Self-Care Condition: Fair Functional capacity at discharge: independent ambulation Overall status at discharge: patient is progressing back to baseline - Discharge Instructions Follow Up With: Jeronimo Wu MD [Primary Care Provider] - 12/30/17 11:30 am () - Diet and Activity Activity: increase activity as tolerated, resume usual activities as tolerated Diet: diabetic diet, low fat, low cholesterol, low salt diet
--- NOTE | 2017-12-25 10:21 | Electrocardiograph Report ---
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
== END 2017-12-25 11:50 | disposition home or self-care (01) ==
LOC: 3BNU 07:05 → INTRAD 07:05 → 3BNU 12:28
PROVIDERS: ADMIT Internal Medicine; ATTEND Radiology Diagnostic Radiology

== ENCOUNTER 2018-01-13 07:24 | Inpatient (IN) ==
[2018-01-13] MEDS ORDERED: D5% in Water 500 ML ONE (07:45)
[2018-01-13] MEDS ORDERED: Heparin 1,000 UNITS/500 mL 500 ML ONE ×2 (07:45→14:34)
[2018-01-13] MEDS ORDERED: 0.9 % Sodium Chloride 500 ML ONE (07:46)
[2018-01-13 07:47] LABS: Basophils % 0.2 %; Eosinophils % 0.2 %; Hematocrit 38.5 % (37.5-50.1); Hemoglobin 12.5 g/dL (12.9-16.9); Immature Granulocytes % 0.2 % (0-4); Lymphocytes # 0.5 K/mcL (0.6-4.6); Lymphocytes % 13.1 %; Mean Corpuscular HGB Conc 32.5 g/dL (31.6-35.5); Mean Corpuscular Hemoglobin 30.3 pg (28.0-33.3); Mean Corpuscular Volume 93.2 fL (83.0-100.0); Mean Platelet Volume 11.5 fL (9.4-12.4); Monocytes # 0.1 K/mcL (0.0-1.3); Monocytes % 1.5 %; Neutrophils # 3.4 K/mcL (1.6-8.9); Platelet Count 115 K/mcL (140-400); Red Blood Count 4.13 M/mcL (4.19-5.50); Red Cell Distribution Width 14.4 % (11.5-14.5); Segmented Neutrophils % 84.8 %
[2018-01-13] MEDS ORDERED: *HR* FentaNYL (PF) 100 MCG/2 ML VIAL IVP ONE ×2 (07:51→13:25)
[2018-01-13] MEDS ORDERED: *HR* Midazolam HCl 2 MG/2 ML VIAL IVP ONE (07:51)
[2018-01-13 07:54] LABS: INR 1.3
[2018-01-13 08:09] LABS: Albumin 4.1 g/dL (3.5-5.7); Bilirubin,Direct 0.3 mg/dL (0.0-0.2); Bilirubin,Indirect 0.9 mg/dL (0.0-1.2); Bilirubin,Total 1.2 mg/dL (0.3-1.0); Globulin 4.2 g/dL (2.4-3.5); Total Protein 8.3 g/dL (6.4-8.9)
[2018-01-13] MEDS ORDERED: Pantoprazole 80 MG in 0.9 % Sodium Chloride 50 ML IVPB ONE (08:44)
[2018-01-13] MEDS ORDERED: Ondansetron 4 MG/2 ML VIAL IVP ONE (08:44)
[2018-01-13] MEDS ORDERED: Levofloxacin 500 MG/100 ML 500 MG/100 ML BAG IVPB ONE (08:46)
[2018-01-13] MEDS ORDERED: Pantoprazole 40 MG VIAL IVP ONE (09:03)
[2018-01-13] MEDS ORDERED: 0.9 % Sodium Chloride 1,000 ML ONE ×2 (09:03→14:33)
[2018-01-13] MEDS ORDERED: Isovue-300 50 ML VIAL IVP ONE ×3 (09:40→09:41)
[2018-01-13] MEDS ORDERED: *HR* HYDROmorphone 2 MG/ML SYRINGE IVP ONE (09:41)
[2018-01-13] MEDS: *HR* OxyCODONE/APAP 10/325 TABLET PO PRN ×3 (10:43→22:01)
[2018-01-13] MEDS ORDERED: *HR* Atropine Sulfate 1 MG/10 ML SYRINGE IV ONE (11:32)
[2018-01-13] MEDS ORDERED: *HR* Atropine Sulfate 1 MG/10 ML SYRINGE IVP ONE ×3 (12:00→12:10)
[2018-01-13] MEDS ORDERED: *HR* FentaNYL (PF) 100 MCG/2 ML VIAL ONE (12:28)
[2018-01-13] MEDS ORDERED: Dextrose Gel 15 GM/37.5 ML TUBE PO PRN ×2 (12:33)
[2018-01-13] MEDS ORDERED: D5% in Water 1,000 ML IVC PRN (12:33)
[2018-01-13] MEDS ORDERED: *HR* Dextrose 50 % in Water (Syg) 50 ML SYRINGE IVP PRN (12:33)
[2018-01-13 12:42] LABS: Basophils % 0.2 %; Hematocrit 38.1 % (37.5-50.1); Hemoglobin 12.1 g/dL (12.9-16.9); Immature Granulocytes % 0.2 % (0-4); Lymphocytes # 0.6 K/mcL (0.6-4.6); Lymphocytes % 12.6 %; Mean Corpuscular HGB Conc 31.8 g/dL (31.6-35.5); Mean Corpuscular Hemoglobin 30.2 pg (28.0-33.3); Mean Platelet Volume 11.9 fL (9.4-12.4); Monocytes # 0.1 K/mcL (0.0-1.3); Monocytes % 2.2 %; Neutrophils # 3.8 K/mcL (1.6-8.9); Platelet Count 119 K/mcL (140-400); Red Blood Count 4.01 M/mcL (4.19-5.50); Red Cell Distribution Width 14.7 % (11.5-14.5); Segmented Neutrophils % 84.8 %
[2018-01-13 13:06] LABS: Calcium 9.3 mg/dL (8.6-10.3); Potassium 5.4 mEq/L (3.5-5.1); Troponin I 0.05 ng/mL (< 0.04)
--- NOTE | 2018-01-13 13:06 | Cardiology Consult Note ---
<Charly Shahid - Last Filed: 01/13/18 14:01> Date of Encounter: 01/13/18 Time of Encounter: 12:50 Assessment and Plan Discussion w patient/family: Unable to access assessment and plan to document: 1) Symptomatic Bradycardia. Status post TACE procedure. Patient apparently hemodynamically unstable on floor with heart rates in the 20s and no blood pressure. Currently transcutaneously paced at 50. Patient with multiple comorbid conditions and most recent oncology noted indicated palliative treatment. Patient and daughter confirm DNR/CCA/DNI status. Patient seen and reviewed with Dr. Zavala, we had lengthy discussion with patient and daughter regarding temporary transcutaneous pacing. 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 All questions answered. Current systolic blood pressure stable to 140s. Continue transcutaneous pacing for now until temporary pacer placed. Patient apparently on a beta pamela and calcium channel pamela in outpatient setting. Currently on hold. Receiving glucagon per primary service. Labs reviewed and noted. Mild troponin of 0.05, suspect type to demand ischemia with significant bradycardia. Chest pain-free. No cardiology rehabilitation consult warranted. The assessment and plan as outlined above was discussed with the patient and/or family members who expressed understanding and agreement. All questions were answered. Thank you for involving us in the care of your patient. Please call with any questions. History of Present Illness Consult date: 01/13/18 Requesting physician: Joey Staley Consult reason: Bradycardia Chief complaint: Tired History of present illness: Previous medical records reviewed: "Mr. Crouch is a 72 year old male with a h/o HCC who follows with [facility]. Additional history includes anxiety, insomnia, SATINDER, CHF, a therosclerosis, valvular disease, GERD, CAD, thrombocytopenia, cirrhosis, esophageal varices. He presents to [facility] S[facility]P TACE in interventional radiology. He is being admitted to observation for overnight monitoring. He denies any abdominal pain, nausea, vomiting shortness of breath, hematoma left groin insertion site, dizziness, fatigue, chest pain. Review of systems overall unremarkable. He will be admitted and treated for nausea and pain". "Patient went to IR today to receive Y-90 with placement of radiation beads. Less than 20 minutes after patient returned to his room, heart rate rapidly decreased to 24. Blood pressure could not be read. Rapid response was called. Patient was given atropine and transferred to ICU. Cardiology was consulted. Patient is being transcutaneously paced, tolerating it well and is stable. Code status is DNR/DNI. Patient's daughter states that his fraud representative is located at [place]. If any procedures need to be done, they would like to transferred to [facility]". Also, Hx of STAS CAROTID ENDARTECTOMY, CABG X2, AORTIC VALVE REPLACED. Follows with Dr. Talha Clarke at [place]. Oncology records reviewed. Recent diagnosis of A. fib. Cardiology consult for bradycardia. Patient seen with the daughter at bedside. Patient denies any chest pain symptoms. Reports "tired because he did not sleep well last night". Denies any discomfort currently from transcutaneous pacing. Reports some mild shortness of breath. Denies any palpitations. He denies any dizziness. Patient and daughter confirm DNR/CCA/DNI status. Indicate if any cardiac procedures warranted would like to be transferred to [place] to his primary fraud representative. Currently mentating and alert and oriented 3. Cooperative. Positive GUTIERREZ 4. Past Med Surg Social Fam HX - Past Medical History Attestation: Yes The following information was validated with the patient. Source: patient, old records reviewed, obtained from family Medical history: cirrhosis, CHF, coronary artery disease, diabetes, GERD, hyperlipidemia, hypertension, myocardial infarction, valvular heart disease, other Additional medical history: MDS, Thrombocytopenia Psychiatric history: anxiety - Past Surgical History Additional surgical history: STAS CAROTID ENDARTECTOMY, CABG X2, AORTIC VALVE REPLACED - Social History Smoking Status: Former smoker Smokeless Tobacco Status: No Alcohol use: none Drug use: none - Family History Mother Living Status: Hx Family Cardiac Disorders: No Hx Family Respiratory Disorders: No Hx Family Cancer: No Hx Family GI Disorders: No Hx Family Endocrine Disorder: No Hx Family Neuromuscular Disorders: No Hx Family Neurologic Disorders: Yes (Dementia) Hx Family HEENT Disorders: No Hx Family Autoimmune Disorders: No Father Living Status: Medications and Allergies Insulin Aspart Prot/Insuln Asp [Novolog Mix 70-30 Flexpen Syrn] 20 unit SQ BID 11/21/14 [History] Nitroglycerin [Nitrostat] 0.4 mg SL PRN PRN 11/21/14 [History] diazePAM [Valium] 5 mg PO BID PRN 06/21/15 [History] Isosorbide DInitrate [Isosorbide Dinitrate] 30 mg PO BID 02/15/17 [History] Captopril [Capoten] 50 mg PO BID 04/15/17 [History] Potassium Chloride [Klor-Con 10] 20 meq PO BID 04/15/17 [History] Cholecalciferol (D-3) [Vitamin D] 1,000 unit PO BID 07/29/17 [History] Furosemide [Lasix] 40 mg PO BID 07/29/17 [History] Diltiazem HCl [Cardizem] 30 mg PO DAILY 11/24/17 [History] Allergy/AdvReac Type Severity Reaction Status Date / Time atenolol Allergy Rash Verified 08/04/17 10:29 carvedilol [From Coreg] AdvReac Unknown Gastrointestinal Verified 08/04/17 10:29 Upset Penicillins AdvReac Unknown Blister Verified 08/04/17 10:29 IVP dye Allergy Difficulty Uncoded 10/16/17 11:54 Breathing All Systems Review: The remainder of the systems were reviewed and are negative - Constitutional Constitutional: fatigue, weakness - Cardiovascular Cardiovascular: as per HPI, dyspnea at rest Physical Examination Vital Signs, Last 4 Hours Temp Pulse Resp BP Pulse Ox 01/13/18 11:20 97.9 F 65 12 105/55 96 01/13/18 10:50 91 16 128/61 93 01/13/18 10:35 95 16 131/68 94 01/13/18 10:11 96 20 133/66 97 01/13/18 10:06 97 11 129/58 97 01/13/18 10:01 97 18 137/87 97 01/13/18 09:57 99 15 133/65 97 01/13/18 09:52 99 14 131/65 98 01/13/18 09:44 99 14 132/66 97 01/13/18 09:39 101 24 134/69 98 01/13/18 09:32 103 12 125/64 96 01/13/18 09:27 74 28 127/65 96 01/13/18 08:53 97.3 F L 52 18 144/60 General: Conversant, Other (lethargic, somewhat pale) HEENT: Atraumatic, Normocephaly, Mucus Membranes Moist Neck: No JVD, Normal carotid pulses Cardiac: Reg Rate and Rhythm, Normal S1 and S2, No Murmur Lungs: Normal Breath Sounds, No Wheeze, Rales, Rhonchi Neuro: Alert and responsive, No focal deficits noted Abdomen: Soft, Non-Tender Skin: No rashes noted on visualized skin, Other (Right groin site dry and intact status post TACE, no bleeding, no hematoma, no ecchymosis, right PT and DP pulses 1+ palpable) Musculoskeletal: No Chest Wall Tenderness Extremities: No Clubbing, No Cyanosis, No Edema, Normal Pulses Results 01/13/18 12:21 01/13/18 12:21 Lab Results Laboratory Tests 01/13/18 01/13/18 01/13/18 07:36 07:36 07:36 Hgb 12.5 L Hct 38.5 Plt Count 115 L INR 1.3 Sodium Potassium Creatinine Est GFR (Non-Af Amer) Glucose Magnesium AST 33 ALT 29 Troponin I TSH 01/13/18 12:21 Hgb Hct Plt Count INR Sodium 128 L Potassium 5.4 H Creatinine 1.89 H Est GFR (Non-Af Amer) 35 L Glucose 502 H* Magnesium 2.0 AST ALT Troponin I 0.05 H* TSH 2.655 Active Medications Acetaminophen (Tylenol) 650 mg PO Q6HR PRN PRN Reason: Mild Pain/Fever Stop: 07/15/18 13:32 Dextrose/Water (Dextrose 50% (Syg)) 25 ml IVP AD PRN PRN Reason: Hypoglycemia Stop: 07/15/18 12:34 Glucagon (Glucagen) 1 mg IM ONCE PRN PRN Reason: Hypoglycemia Stop: 07/15/18 12:34 Glucose (Gluctose) 15 gm PO ONCE PRN PRN Reason: Hypoglycemia Stop: 07/15/18 12:34 Glucose (Gluctose) 30 gm PO ONCE PRN PRN Reason: Hypoglycemia Stop: 07/15/18 12:34 Dextrose (Dextrose 5%) 1,000 mls @ 100 mls/hr IVC .Q10H PRN PRN Reason: HYPOGLYCEMIA Stop: 07/15/18 12:34 Sodium Chloride (0.9 % Sodium Chloride) 1,000 mls @ 50 mls/hr IVC .Q20H KEANU Stop: 07/15/18 14:01 Insulin Human Lispro (Humalog) 0 units SQ Q6HR KEANU; Protocol Stop: 07/15/18 18:01 Naloxone HCl (Narcan) 0.4 mg IVP Q2MIN PRN PRN Reason: SEE COMMENTS Stop: 07/15/18 13:32 Oxycodone/Acetaminophen (Percocet 10325) 1 each PO Q4HR PRN PRN Reason: Pain Stop: 07/15/18 10:27 Last Admin: 01/13/18 10:43 Dose: 1 each - EKG Interpretation EKG results cardiology: personally reviewed (SB with prolonged 1st AVB), other (Currently transcutaneously paced at 50 at bedside) Consult Discharge Plan - Plan Referrals: Jeronimo Wu MD [Primary Care Provider] - <Becca Zavala - Last Filed: 01/13/18 16:06> Date of Encounter: 01/13/18 - Attending Attestation I examined this patient and my medical decision-making was reviewed with the [employer] SUPERVISOR. I agree with the documented findings, disposition and treatment plan as described. Called from ICU for concern regarding symptomatic bradycardia. Patient underwent TACE procedure today and noticed to have heart rates in 20's, hemodynamically unstable - started on transcutaneous pacing. At the bedside the patient was being transcutaneously paced. Sleepy but arousable. Daughter present at bedside. Underlying rhythm profound bradycardia on ECG. Etiology unclear. Was on 2 AVN blockers at home. Has some metabolic derrangement on labs. Also received anesthesia today. At this time, we recommended patient undergo temporary bowser svenous pacing given hemodynamic instability necessitating transcutaneous pacing. The patient appeared to express understanding. Daughter is in favor. Will obtain consent from Daughter. Patient and daughter are aware that code status needs rescinded to Full Code for the procedure and are in agreement to proceed. Case discussed with EP and Interventional Cardiology. Will obtain outside medical records from primary [employer] Account Executive, Dr. Shearer in Home. Assessment and Plan Discussion w patient/family: The assessment and plan as outlined above was discussed with the patient and/or family members who expressed understanding and agreement. All questions were answered. Thank you for involving us in the care of your patient. Please call wi th any questions. History of Present Illness History of present illness: Mr. Crouch is a 72 year old male All Systems Review: The remainder of the systems were reviewed and are negative Physical Examination Vital Signs, Last 4 Hours Temp Pulse Pulse Resp BP Pulse Ox 01/13/18 15:25 70 18 98/45 97 01/13/18 15:10 96.0 F L 70 18 99/57 97 01/13/18 14:55 96.0 F L 0 18 96/48 95 01/13/18 14:40 96.0 F L 70 69 18 100/45 95 01/13/18 13:00 55 18 157/114 92 01/13/18 12:30 55 01/13/18 12:10 96.0 F L 27 18 109/55 92 Results 01/13/18 12:21 01/13/18 12:21 Lab Results 01/13/18 01/13/18 01/13/18 07:36 07:36 07:36 WBC 4.1 L Hgb 12.5 L Hct 38.5 Plt Count 115 L INR 1.3 Sodium Potassium Chloride Carbon Dioxide BUN Creatinine Glucose Calcium Magnesium Total Bilirubin 1.2 H AST 33 ALT 29 Alkaline Phosphatase 127 H Troponin I TSH 01/13/18 01/13/18 12:21 12:21 WBC 4.5 Hgb 12.1 L Hct 38.1 Plt Count 119 L INR Sodium 128 L Potassium 5.4 H Chloride 97 L Carbon Dioxide 20 L BUN 42 H Creatinine 1.89 H Glucose 502 H* Calcium 9.3 Magnesium 2.0 Total Bilirubin AST ALT Alkaline Phosphatase Troponin I 0.05 H* TSH 2.655
--- NOTE | 2018-01-13 13:26 | Pulmonology History & Physical ---
Date of Encounter: 01/13/18 Time of Encounter: 13:10 History of Present Illness HPI: 72 year old male with medical history of hepatocellular carcinoma, CHF, CAD, HTN, diabetes, CKD, esophageal varices, myelodysplastic syndrome, thrombocytopenia. Patient went to IR today to receive Y-90 with placement of radiation beads. Less than 20 minutes after patient returned to his room, heart rate rapidly decreased to 24. Blood pressure could not be read. Rapid response was called. Patient was given atropine and transferred to ICU. Cardiology was consulted. Patient is being transcutaneously paced, tolerating it well and is stable. Code status is DNR/DNI. Patient's daughter states that his costumer assistant is located at [place]. If any procedures need to be done, they would like to transferred to [place]. Patient states that he feels tired. Denies any other complaints. Past Med Surg Social Fam HX - Past Medical History Medical history: cirrhosis, CHF, coronary artery disease, diabetes, GERD, hyperlipidemia, hypertension, myocardial infarction, valvular heart disease, other Additional medical history: MDS, Thrombocytopenia Psychiatric history: anxiety - Past Surgical History Additional surgical history: STAS CAROTID ENDARTECTOMY, CABG X2, AORTIC VALVE REPLACED - Social History Smoking Status: Former smoker Smokeless Tobacco Status: No Alcohol use: none Drug use: none - Family History Mother Living Status: Hx Family Cardiac Disorders: No Hx Family Respiratory Disorders: No Hx Family Cancer: No Hx Family GI Disorders: No Hx Family Endocrine Disorder: No Hx Family Neuromuscular Disorders: No Hx Family Neurologic Disorders: Yes (Dementia) Hx Family HEENT Disorders: No Hx Family Autoimmune Disorders: No Father Living Status: Medications and Allergies Insulin Aspart Prot/Insuln Asp [Novolog Mix 70-30 Flexpen Syrn] 20 unit SQ BID 11/21/14 [History] Nitroglycerin [Nitrostat] 0.4 mg SL PRN PRN 11/21/14 [History] diazePAM [Valium] 5 mg PO BID PRN 06/21/15 [History] Isosorbide DInitrate [Isosorbide Dinitrate] 30 mg PO BID 02/15/17 [History] Captopril [Capoten] 50 mg PO BID 04/15/17 [History] Potassium Chloride [Klor-Con 10] 20 meq PO BID 04/15/17 [History] Cholecalciferol (D-3) [Vitamin D] 1,000 unit PO BID 07/29/17 [History] Furosemide [Lasix] 40 mg PO BID 07/29/17 [History] Diltiazem HCl [Cardizem] 30 mg PO DAILY 11/24/17 [History] Allergy/AdvReac Type Severity Reaction Status Date / Time atenolol Allergy Rash Verified 08/04/17 10:29 carvedilol [From Coreg] AdvReac Unknown Gastrointestinal Verified 08/04/17 10:29 Upset Penicillins AdvReac Unknown Blister Verified 08/04/17 10:29 IVP dye Allergy Difficulty Uncoded 10/16/17 11:54 Breathing All Systems: The remainder of the systems were reviewed and are negative - Constitutional Constitutional: no anorexia, no chills - EENT Eyes: no loss of peripheral vision Ears: no decreased hearing Nose, mouth and throat: no change in voice - Cardiovascular Cardiovascular: no diaphoresis, no radiating jaw, neck or arm pain - Respiratory Respiratory: no cough, no dyspnea - Gastrointestinal Gastrointestinal: no abdominal pain, no diarrhea - Genitourinary Genitourinary: no difficulty urinating, no dysuria - Musculoskeletal Musculoskeletal: weakness, no joint pain - Integumentary Integumentary: no erythema, no rash - Neurological Neurological: no focal weakness, no headache(s) Physical Examination Vital Signs: Vital Signs, Last 4 Hours Temp Pulse Resp BP Pulse Ox 01/13/18 13:00 55 18 157/114 92 01/13/18 12:10 96.0 F L 27 18 109/55 92 01/13/18 11:20 97.9 F 65 12 105/55 96 01/13/18 10:50 91 16 128/61 93 01/13/18 10:35 95 16 131/68 94 01/13/18 10:11 96 20 133/66 97 01/13/18 10:06 97 11 129/58 97 01/13/18 10:01 97 18 137/87 97 01/13/18 09:57 99 15 133/65 97 01/13/18 09:52 99 14 131/65 98 01/13/18 09:44 99 14 132/66 97 01/13/18 09:39 101 24 134/69 98 01/13/18 09:32 103 12 125/64 96 01/13/18 09:27 74 28 127/65 96 General appearance: alert, other (fatigue ) Eyes: nonicteric Neck: supple Effort: normal Auscultation: bilateral: clear Cardiovascular: regular rate and rhythm Gastrointestinal: normoactive bowel sounds, soft, tender (mild tenderness to palpation of epigastrium ) Integumentary: normal Extremities: no cyanosis, no clubbing, pink and warm, edema (1-2+ pitting edema bilaterally ) Musculoskeletal: no deformities normal mental status, pupils equal and round Results - Laboratory Findings CBC and BMP: 01/13/18 12:21 01/13/18 12:21 PT/INR, D-dimer PT 15.0 Seconds (9.4-12.1) H 01/13/18 07:36 Abnormal lab findings: Abnormal lab results RBC 4.01 M/mcL (4.19-5.50) L 01/13/18 12:21 Hgb 12.1 g/dL (12.9-16.9) L 01/13/18 12:21 RDW 14.7 % (11.5-14.5) H 01/13/18 12:21 Plt Count 119 K/mcL (140-400) L 01/13/18 12:21 PT 15.0 Seconds (9.4-12.1) H 01/13/18 07:36 Sodium 128 mEq/L (136-145) L 01/13/18 12:21 Potassium 5.4 mEq/L (3.5-5.1) H 01/13/18 12:21 Chloride 97 mEq/L (98-107) L 01/13/18 12:21 Carbon Dioxide 20 mEq/L (23-29) L 01/13/18 12:21 BUN 42 mg/dL (8-23) H 01/13/18 12:21 Creatinine 1.89 mg/dL (0.70-1.30) H 01/13/18 12:21 Est GFR ( Amer) 42 (> 60) L 01/13/18 12:21 Est GFR (Non-Af Amer) 35 (> 60) L 01/13/18 12:21 Glucose 502 mg/dL (70-105) H* 01/13/18 12:21 POC Glucose 510 mg/dL (70-99) H* 01/13/18 12:19 Total Bilirubin 1.2 mg/dL (0.3-1.0) H 01/13/18 07:36 Direct Bilirubin 0.3 mg/dL (0.0-0.2) H 01/13/18 07:36 Alkaline Phosphatase 127 Units/L (34-104) H 01/13/18 07:36 Troponin I 0.05 ng/mL (< 0.04) H* 01/13/18 12:21 Globulin 4.2 g/dL (2.4-3.5) H 01/13/18 07:36 Albumin/Globulin Ratio 1.0 (1.1-2.2) L 01/13/18 07:36
[2018-01-13] MEDS ORDERED: Acetaminophen 325 MG TABLET PO PRN (13:31)
[2018-01-13] MEDS ORDERED: Naloxone 0.4 MG/ML INJ IVP PRN (13:31)
[2018-01-13 13:35] LABS: Thyroid Stimulating Hormone 2.655 mcIU/mL (0.340-5.600)
--- NOTE | 2018-01-13 13:42 | Internal Med History&Physical ---
Date of Encounter: 01/13/18 Time of Encounter: 12:00 Internal Medicine - H&P: HPI Chief complaint: Bradycardia Admitted From: Home Plans for Post Hospital Care: Home History of present illness: Mr. Crouch is a 72 year old male directly admitted from interventional radiology department for post procedure observation. Past medical history is significant for CAD S/P CABG, S/P aortic valve replacement, diabetes, cirrhosis, HCC, thrombocytopenia Patient has HCC and had embolization with radiation beads today. Patient was given versed 2 mg, fentanyl 100 g, and hydromorphone 1 mg during procedure. Procedure has been finished uneventfully. Patient was placed to floor for observation. However, when patient arrived at 3A, he was found bradycardia with heart rate 23 BPM. Rapid response has been called. Patient denies chest pain, shortness of breath, nausea, dizziness. His blood pressure is stable. He was treated with atropin IV 0.25mg/0.25mg/0.5mg and heart rate increased to 30s. Patient was transferred to ICU, log check scaler consult saw patient immediately and external pacemaker has been placed. Cardiology consult was called. Patient will be monitored in ICU for severe bradycardia. 12-lead EKG has been done, which showed high degree AV block. Patient has history of CAD S/P CABG. Patient said he has occasionally heartburn for which he takes nitroglycerin sublingual and it helps. This morning, he has similar heartburn and takes sublingual nitroglycerin, after which the heartburn resolved. I have discussed CODE STATUS with this patient. Patient clearly told me he does not want CPR or intubation, DNR/DNI placed. Past Med Surg Social Fam HX - Past Medical History Medical history: cirrhosis, CHF, coronary artery disease, diabetes, GERD, hyperlipidemia, hypertension, myocardial infarction, valvular heart disease, other Additional medical history: MDS, Thrombocytopenia Psychiatric history: anxiety - Past Surgical History Additional surgical history: STAS CAROTID ENDARTECTOMY, CABG X2, AORTIC VALVE REPLACED - Social History Smoking Status: Former smoker Smokeless Tobacco Status: No Alcohol use: none Drug use: none - Family History Mother Living Status: Hx Family Cardiac Disorders: No Hx Family Respiratory Disorders: No Hx Family Cancer: No Hx Family GI Disorders: No Hx Family Endocrine Disorder: No Hx Family Neuromuscular Disorders: No Hx Family Neurologic Disorders: Yes (Dementia) Hx Family HEENT Disorders: No Hx Family Autoimmune Disorders: No Father Living Status: Internal Medicine - H&P: Meds Insulin Aspart Prot/Insuln Asp [Novolog Mix 70-30 Flexpen Syrn] 20 unit SQ BID 11/21/14 [History] Nitroglycerin [Nitrostat] 0.4 mg SL PRN PRN 11/21/14 [History] diazePAM [Valium] 5 mg PO BID PRN 06/21/15 [History] Isosorbide DInitrate [Isosorbide Dinitrate] 30 mg PO BID 02/15/17 [History] Captopril [Capoten] 50 mg PO BID 04/15/17 [History] Potassium Chloride [Klor-Con 10] 20 meq PO BID 04/15/17 [History] Cholecalciferol (D-3) [Vitamin D] 1,000 unit PO BID 07/29/17 [History] Furosemide [Lasix] 40 mg PO BID 07/29/17 [History] Diltiazem HCl [Cardizem] 30 mg PO DAILY 11/24/17 [History] Allergy/AdvReac Type Severity Reaction Status Date / Time atenolol Allergy Rash Verified 08/04/17 10:29 carvedilol [From Coreg] AdvReac Unknown Gastrointestinal Verified 08/04/17 10:29 Upset Penicillins AdvReac Unknown Blister Verified 08/04/17 10:29 IVP dye Allergy Difficulty Uncoded 10/16/17 11:54 Breathing All Systems PM: A 10-system review of systems was performed and is negative for pertinent findings except as documented above in the HPI. - Constitutional Vitals: Temp Pulse Resp BP Pulse Ox 96.0 F L 55 18 157/114 92 01/13/18 12:10 01/13/18 13:00 01/13/18 13:00 01/13/18 13:00 01/13/18 13:00 General appearance: Present: A&O X 3, no acute distress, answers questions appropriately Exam: Pt is AAO x 3, in NAD HEENT: NC/AT, PERRL Neck: Supple, no JVD, no LAD Lungs: CTA b/l Heart: S1S2, RRR, HR 50 on external pacemaker Abd: Soft, nontender, BS present Ext: ROM wnl, 2+ pedal edema bilaterally Neuro: No focal deficit Internal Med - H&P Results - Labs CBC & Chem 7: 12/04/18 12:21 01/13/18 12:21 Labs: Short CBC 01/13/18 01/13/18 Range/Units 07:36 12:21 WBC 4.1 L 4.5 (4.3-11.1) K/mcL Hgb 12.5 L 12.1 L (12.9-16.9) g/dL Hct 38.5 38.1 (37.5-50.1) % Plt Count 115 L 119 L (140-400) K/mcL Neutrophils # 3.4 3.8 (1.6-8.9) K/mcL BMP 01/13/18 12:21 Sodium 128 L Potassium 5.4 H Chloride 97 L Carbon Dioxide 20 L BUN 42 H Creatinine 1.89 H Glucose 502 H* Calcium 9.3 Cardiac Enzymes 01/13/18 Range/Units 12:21 Troponin I 0.05 H* (< 0.04) ng/mL Liver Function 01/13/18 Range/Units 07:36 Total Bilirubin 1.2 H (0.3-1.0) mg/dL Direct Bilirubin 0.3 H (0.0-0.2) mg/dL AST 33 (13-39) Units/L ALT 29 (7-52) Units/L Alkaline Phosphatase 127 H (34-104) Units/L Albumin 4.1 (3.5-5.7) g/dL - Assessment and plan (1) Bradycardia Current Visit: Yes Status: Acute Assessment and plan: Patient has bradycardia. Etiology is undetermined. BP is stable and the patient has no significant symptoms. - Place patient on continuous cardiac monitoring - Track 3 sets of troponin, magnesium, TSH - Continue external pacemaker - Cardiology consult at the bedside when I see patient in ICU. Will follow further recommendations. - Keep nothing by mouth at this point (2) DVT prophylaxis Current Visit: No Status: Acute Assessment and plan: Heparin subcutaneously (3) HTN (hypertension) Current Visit: No Status: Acute Assessment and plan: BP is not high. Will hold BP medication at this point as heart rate is very low Qualifiers: Hypertension type: essential hypertension Qualified Code(s): I10 - Essential (primary) hypertension (4) Hepatocellular carcinoma Current Visit: No Status: Acute Assessment and plan: S/P IR embolization. Continue follow-up as outpatient after discharge. (5) Thrombocytopenia Current Visit: No Status: Acute Assessment and plan: Continue outpatient follow-up (6) CKD (chronic kidney disease) stage 3, GFR 30-59 ml/min Current Visit: No Status: Chronic Assessment and plan: Continue closely monitor renal function. Avoid nephrotoxic medications. Will give low rate IV fluid as patient had IV contrast today for IR procedure and NPO now.. (7) Diabetes Current Visit: No Status: Chronic Assessment and plan: Place patient on sliding-scale insulin coverage. Glucose is high at this point, probably due to pre-medication (steroid) given before IR procedure because patient is allergic to contrast. Will adjust insulin dose as needed. 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
[2018-01-13] MEDS ORDERED: 0.9 % Sodium Chloride 1,000 ML IVC SCH (14:00)
--- NOTE | 2018-01-13 14:03 | Pulmonology Consult Note ---
<AnantrenateRaina solorzano M - Last Filed: 01/13/18 16:12> Date of Encounter: 01/13/18 Medications and Allergies Insulin Aspart Prot/Insuln Asp [Novolog Mix 70-30 Flexpen Syrn] 20 unit SQ BID 11/21/14 [History] Nitroglycerin [Nitrostat] 0.4 mg SL PRN PRN 11/21/14 [History] diazePAM [Valium] 5 mg PO BID PRN 06/21/15 [History] Isosorbide DInitrate [Isosorbide Dinitrate] 30 mg PO BID 02/15/17 [History] Captopril [Capoten] 50 mg PO BID 04/15/17 [History] Potassium Chloride [Klor-Con 10] 20 meq PO BID 04/15/17 [History] Cholecalciferol (D-3) [Vitamin D] 1,000 unit PO BID 07/29/17 [History] Furosemide [Lasix] 40 mg PO BID 07/29/17 [History] Diltiazem HCl [Cardizem] 30 mg PO DAILY 11/24/17 [History] Allergy/AdvReac Type Severity Reaction Status Date / Time atenolol Allergy Rash Verified 08/04/17 10:29 carvedilol [From Coreg] AdvReac Unknown Gastrointestinal Verified 08/04/17 10:29 Upset Penicillins AdvReac Unknown Blister Verified 08/04/17 10:29 IVP dye Allergy Difficulty Uncoded 10/16/17 11:54 Breathing All Systems: The remainder of the systems were reviewed and are negative Physical Examination Vital Signs: Vital Signs, Last 4 Hours Temp Pulse Pulse Resp BP Pulse Ox 01/13/18 15:25 70 18 98/45 97 01/13/18 15:10 96.0 F L 70 18 99/57 97 01/13/18 14:55 96.0 F L 0 18 96/48 95 01/13/18 14:40 96.0 F L 70 69 18 100/45 95 01/13/18 13:00 55 18 157/114 92 01/13/18 12:30 55 Results - Laboratory Findings CBC and BMP: 01/13/18 12:21 01/13/18 12:21 PT/INR, D-dimer PT 15.0 Seconds (9.4-12.1) H 01/13/18 07:36 Abnormal lab findings: Abnormal lab results RBC 4.01 M/mcL (4.19-5.50) L 01/13/18 12:21 Hgb 12.1 g/dL (12.9-16.9) L 01/13/18 12:21 RDW 14.7 % (11.5-14.5) H 01/13/18 12:21 Plt Count 119 K/mcL (140-400) L 01/13/18 12:21 PT 15.0 Seconds (9.4-12.1) H 01/13/18 07:36 Sodium 128 mEq/L (136-145) L 01/13/18 12:21 Potassium 5.4 mEq/L (3.5-5.1) H 01/13/18 12:21 Chloride 97 mEq/L (98-107) L 01/13/18 12:21 Carbon Dioxide 20 mEq/L (23-29) L 01/13/18 12:21 BUN 42 mg/dL (8-23) H 01/13/18 12:21 Creatinine 1.89 mg/dL (0.70-1.30) H 01/13/18 12:21 Est GFR ( Amer) 42 (> 60) L 01/13/18 12:21 Est GFR (Non-Af Amer) 35 (> 60) L 01/13/18 12:21 Glucose 502 mg/dL (70-105) H* 01/13/18 12:21 POC Glucose 510 mg/dL (70-99) H* 01/13/18 12:19 Total Bilirubin 1.2 mg/dL (0.3-1.0) H 01/13/18 07:36 Direct Bilirubin 0.3 mg/dL (0.0-0.2) H 01/13/18 07:36 Alkaline Phosphatase 127 Units/L (34-104) H 01/13/18 07:36 Troponin I 0.05 ng/mL (< 0.04) H* 01/13/18 12:21 Globulin 4.2 g/dL (2.4-3.5) H 01/13/18 07:36 Albumin/Globulin Ratio 1.0 (1.1-2.2) L 01/13/18 07:36 - Clinical Findings Intake & Output: Intake & Output 1201/13/18 01/13/18 07:59 15:59 23:59 Intake Total 0 / 0 Balance 0 / 0 Weight 104.326 kg Consult Discharge Plan - Plan Referrals: Jeronimo Wu MD [Primary Care Provider] - - Attending Attestation I examined this patient and my medical decision-making was reviewed with the Resident Physician. I agree with the documented findings, disposition and treatment plan as described except to the extent set forth below. Patient seen and examined. Labs, radiology, chart personally reviewed. Rapid response was called for this patient because of his significant bradycardia Agree with resident's history and physical, assessment, plan with following comments: GANG LEADER: Patient follows commands, Pulmonary: Acceptable oxygenation and ventilation. However patient at risk of deterioration and concern about his airway for that reason had discussion with the daughter at the bedside and were told initial patient is full code, however daughter confirmed his CODE STATUS is DNR comfort and DO NOT INTUBATE. Patient will need to be on oxygen to keep his SPO2 around 90%. Cardiovascular: Patient with significant bradycardia and I suspect this is multifactorial. Patient did not respond to atropine and I had external pacer which was activated and unfortunately because of the discomfort I had to give him fentanyl for comfort and then partially Chart. All the blood works has been sent to check for any electrolytes abnormalities. I have also discussed with the hospitalist and also with interventional radiologist and thinking this was not related to his procedure that was recently done. Cardiology has been consulted and intervention was done. I have given him glucagon for his bradycardia since patient was on beta pamela and also history of calcium channel pamela. There is a possibility patient will be transferred to his aerial photograph interpreter in [place]. GI: Nutrition per dietary and GI prophylaxis per routine. Patient has liver disease and they suspect he is not metabolizing medication and concern about electrolytes abnormalities. Heme: DVT prophylaxis per routine ID: Continue antibiotics and plan to de-escalation Renal; urine out put and renal funtion reviewed Endorcine: blood glucose is monitored. Patient with significant hyperglycemia and I am concerned if he received significant doses of insulin then hypoglycemia would be a major problem for this patient. Lines: all lines checked and no evidence of infections Skin: skin care to prevent pressure ulcers per nursing routine care I spent 40 min of Critical Care time with this patient. It involved decision making of high complexity to assess, manipulate, and support vital organ system failure and/or to prevent further life threatening deterioration of the patient's condition. The time involved in the performance of separately reportable procedures was not counted toward critical care time. <Alba Belle - Last Filed: 01/13/18 17:24> Date of Encounter: 01/13/18 Time of Encounter: 13:15 Assessment and Plan (1) Bradycardia Current Visit: Yes Status: Acute Acute bradycardia with heart rate 24 after Y-90 procedure. Possibly secondary to BB/CCB toxicity vs electrolyte abnormality vs cardiac depression from procedural sedation. EKG showed complete heart block. On transcutaneous pace. Plan for OR for temporary pacemaker. If patient requires permanent pacemaker, he would like transfer to [place]. Cardiology consulted and following. (2) Elevated troponin Current Visit: Yes Status: Acute History of CAD and CABG. Troponin mildly elevated at 0.05. Likely secondary to ischemic demand in setting of significant bradycardia. EKG shows no acute ischemic changes. Trend and monitor. (3) Hyperglycemia Current Visit: Yes Status: Acute History of diabetes. On presentation, glucose of 510. High SSI q4h. Patient to self-administer home novolog starting tomorrow. (4) Acute kidney injury superimposed on CKD Current Visit: Yes Status: Acute History of CKD. On presentation, Cr of 1.89. On 01/09, Cr of 1.57. Possibly secondary to decreased perfusion in setting of significant bradycardia. Continue to monitor. Avoid nephrotoxins. (5) Hyperkalemia Current Visit: No Status: Resolved On presentation, potassium elevated at 5.4. Likely secondary to TEO. Insulin for hyperglycemia. Continue to monitor. (6) Hepatocellular carcinoma Current Visit: No Status: Chronic History of HCC. Status post Y-90 on 01/13/18. (7) HTN (hypertension) Current Visit: No Status: Chronic History of HTN Home meds: Cardizem, captopril Hold in setting of bradycardia Qualifiers: Hypertension type: essential hypertension Qualified Code(s): I10 - Essential (primary) hypertension (8) DVT prophylaxis Current Visit: No Status: Acute Heparin SQ History of Present Illness Consult date: 01/13/18 History of present illness: 72 year old male with medical history of hepatocellular carcinoma, CHF, CAD, HTN, diabetes, CKD, esophageal varices, myelodysplastic syndrome, thrombocytopenia. Today, patient received Y-90 by IR. Patient was direct admitted by IR for post- procedure observation. Less than 20 minutes after patient was on the floor, heart rate rapidly decreased to 24. Blood pressure could not be read. Rapid response was called. Patient was given atropine with improvement of heart rate to 30s. Patient was transferred to ICU. Transcutaneous pacer was placed. Cardiology was consulted. Patient seen and examined. Patient is tolerating transcutaneous pacer well and is stable. Patient states that he feels tired. Denies any other complaints. Denies chest pain, shortness of breath, nausea/vomiting, abdominal pain, dizziness. Code status is DNR/DNI. Patient's daughter states that his aerial photograph interpreter is located at [place]. If any procedures need to be done, they would like to be transferred to [place]. Past Med Surg Social Fam HX - Past Medical History Medical history: cirrhosis, CHF, coronary artery disease, diabetes, GERD, hyperlipidemia, hypertension, myocardial infarction, valvular heart disease, other Additional medical history: MDS, Thrombocytopenia Psychiatric history: anxiety - Past Surgical History Additional surgical history: STAS CAROTID ENDARTECTOMY, CABG X2, AORTIC VALVE REPLACED - Social History Smoking Status: Former smoker Smokeless Tobacco Status: No Alcohol use: none Drug use: none - Family History Mother Living Status: Hx Family Cardiac Disorders: No Hx Family Respiratory Disorders: No Hx Family Cancer: No Hx Family GI Disorders: No Hx Family Endocrine Disorder: No Hx Family Neuromuscular Disorders: No Hx Family Neurologic Disorders: Yes (Dementia) Hx Family HEENT Disorders: No Hx Family Autoimmune Disorders: No Father Living Status: All Systems: The remainder of the systems were reviewed and are negative - Constitutional Constitutional: no anorexia, no chills - EENT Eyes: no loss of peripheral vision Ears: no decreased hearing Nose, mouth and throat: no change in voice - Cardiovascular Cardiovascular: no chest pain, no claudication - Respiratory Respiratory: no cough, no dyspnea - Gastrointestinal Gastrointestinal: no abdominal pain, no diarrhea - Musculoskeletal Musculoskeletal: weakness, no joint pain - Integumentary Integumentary: no erythema, no rash - Neurological Neurological: no abnormal gait, no headache(s) - Endocrine Endocrine: no cold intolerance, no excessive sweating Physical Examination Vital Signs: Vital Signs, Last 4 Hours Temp Pulse Resp BP Pulse Ox 01/13/18 13:00 55 18 157/114 92 01/13/18 12:10 96.0 F L 27 18 109/55 92 01/13/18 11:20 97.9 F 65 12 105/55 96 01/13/18 10:50 91 16 128/61 93 01/13/18 10:35 95 16 131/68 94 01/13/18 10:11 96 20 133/66 97 01/13/18 10:06 97 11 129/58 97 General appearance: alert, other (fatigue ) Eyes: nonicteric Neck: supple Effort: normal Auscultation: bilateral: clear Cardiovascular: regular rate and rhythm Gastrointestinal: normoactive bowel sounds, soft, tender (mild tenderness to palpation of epigastrium ) Integumentary: normal Extremities: no cyanosis, no clubbing, pink and warm, edema (1-2+ pitting edema of lower extremities ) Musculoskeletal: no deformities normal mental status, pupils equal and round Results - Laboratory Findings CBC and BMP: 01/13/18 12:21 01/13/18 12:21 PT/INR, D-dimer PT 15.0 Seconds (9.4-12.1) H 01/13/18 07:36 Abnormal lab findings: Abnormal lab results RBC 4.01 M/mcL (4.19-5.50) L 01/13/18 12:21 Hgb 12.1 g/dL (12.9-16.9) L 01/13/18 12:21 RDW 14.7 % (11.5-14.5) H 01/13/18 12:21 Plt Count 119 K/mcL (140-400) L 01/13/18 12:21 PT 15.0 Seconds (9.4-12.1) H 01/13/18 07:36 Sodium 128 mEq/L (136-145) L 01/13/18 12:21 Potassium 5.4 mEq/L (3.5-5.1) H 01/13/18 12:21 Chloride 97 mEq/L (98-107) L 01/13/18 12:21 Carbon Dioxide 20 mEq/L (23-29) L 01/13/18 12:21 BUN 42 mg/dL (8-23) H 01/13/18 12:21 Creatinine 1.89 mg/dL (0.70-1.30) H 01/13/18 12:21 Est GFR ( Amer) 42 (> 60) L 01/13/18 12:21 Est GFR (Non-Af Amer) 35 (> 60) L 01/13/18 12:21 Glucose 502 mg/dL (70-105) H* 01/13/18 12:21 POC Glucose 510 mg/dL (70-99) H* 01/13/18 12:19 Total Bilirubin 1.2 mg/dL (0.3-1.0) H 01/13/18 07:36 Direct Bilirubin 0.3 mg/dL (0.0-0.2) H 01/13/18 07:36 Alkaline Phosphatase 127 Units/L (34-104) H 01/13/18 07:36 Troponin I 0.05 ng/mL (< 0.04) H* 01/13/18 12:21 Globulin 4.2 g/dL (2.4-3.5) H 01/13/18 07:36 Albumin/Globulin Ratio 1.0 (1.1-2.2) L 01/13/18 07:36 - Clinical Findings Intake & Output: Intake & Output 01/12/18 01/13/18 01/13/18 23:59 07:59 15:59 Weight 104.326 kg
[2018-01-13] MEDS ORDERED: *HR* Heparin 10,000 UNIT/10 ML VIAL ONE (14:34)
[2018-01-13] MEDS ORDERED: Nitroglycerin 1,000 MCG/10 ML VIAL IV ONE (14:34)
[2018-01-13] MEDS ORDERED: ISOVUE-370 200 ML INFUS..BTL ONE (14:34)
--- NOTE | 2018-01-13 14:38 | Invasive Diagnostic Lab Proc ---
Name: Jair Crouch Date of Study: 01/13/2018 Date: 1945 Ht: 68.1in Medical Record#: [id number] Age: 72 Wt: 229.28lb Gender: Male BSA: 2.17 Order #: [id number] BMI: 34.75 Physicians Procedure Physician: Jair Cardoso MD, [facility] Referring MD: Referring MD: Staff Name Position Time In Shivam Marte RN Jumpbasting Canvas Baster 01:45 PM Jered Morgan RT (R) Monitor 01:45 PM Destinee Junior RT (R) Scrub 01:45 PM Procedures Performed Procedure INS/RPL TEMP PM LEAD/CATH;SNGL Pre-Procedure Checklist Informed consent is complete signed and on chart. H&P is on chart. ID band is on and ID verified with patient. Patient NPO for procedure The procedure was described for the patient and questions were answered. Blood Pressure: 85/40 ECG is on chart. Rhythm: Sinus Bradycardia Plan of Care Patient will tolerate the procedure without complications. Adequate level of comfort will be maintained. Hemodynamics will remain stable Patient will recover from procedure without complications. Respiratory function will be maintained. Cardiac rhythm will remain stable. Patient temperature will be maintained. Patient and/or family have verbalized understanding of the procedure. Patient Education Chief Complaint/Reason for Test: Temp Pacer Developmental Category: Geriatric (65+ years) Developmentally Appropriate for Age: Yes Learning Barriers: None Education Needs: Procedure Education Method: Verbal Information Taught: Temp Pacer Educational Evaluation: Able to repeat information Intravenous Access Time IV Size Location DC'd Fluid/Drip Rate Units RN 01:58 PM 20g 1 1/4" Patent On Arrival Lt Antecubital 0.9NaCl 25 ml/hr Shivam Marte RN 01:58 PM 20g 1 1/4" Patent On Arrival Rt Hand Allergies IVP dye Penicillins PCN (penicillin) carvedilol atenolol Vital Signs Time BP (mmHg) HR (bpm) O2 Sat. RR (bpm) LOC 01:47 PM 85 / 40 48 79 % 14 5 = Fully awake and oriented or at pre-proc level 01:48 PM / % 5 = Fully awake and oriented or at pre-proc level 02:03 PM / % 5 = Fully awake and oriented or at pre-proc level 01:57 PM 85 / 40 55 80 % 01:59 PM 98 / 28 47 78 % 02:05 PM 156 / 83 48 77 % 02:09 PM 123 / 60 69 82 % 11 02:14 PM 129 / 53 69 89 % 9 02:19 PM 119 / 54 69 89 % 9 Procedural Medications Time Medication Dose Units Method Given By 01:50 PM Oxygen 6 L/min nasal cannula Shivam Marte RN 02:03 PM Lidocaine 2% 2 ml Subcutaneous Jair Cardoso MD, FACC 02:05 PM Oxygen 6 L/min Oxy Mask Shivam Marte RN ASA Classification: CLASS III- Severe systemic disease (i.e. prior AMI, diabetes with vascular complications, morbid obesity) Vanesa Score Preprocedure Postprocedure Activity 2- Moves 4 extremities sustained head lift Activity 2- Moves 4 extremities sustained head lift Circulation 2- SBP +/= 20 points of pre-anesthetic level Circulation 2- SBP +/= 20 points of pre-anesthetic level Consciousness 2- Awake and alert oriented x 3 Consciousness 2- Awake and alert oriented x 3 O2 Saturation 2- Able to maintain O2 satruation of 92% on room air O2 Saturation 2- Able to maintain O2 satruation of 92% on room air Respiratory 2- Able to deep breathe and cough well Respiratory 2- Able to deep breathe and cough well Total Score 10 Total Score 10 Contrast Agent: Isovue Fluoro Dose: 2910 mGy Procedure Log Time Note Enter By 01:45 PM Shivam Marte RN Position: Jumpbasting Canvas Baster Time in: 13:45 01:45 PM Jered Morgan RT (R) Position: Monitor Time in: 13:45 01:45 PM Destinee Junior RT (R) Position: Scrub Time in: 13:45 01:46 PM Patient charges- Angio tray pack, Navilyst 3mm J, Pulse Oximetry and ACIST tubing and transducer [email or web address] 01:47 PM Pt arrived to laboratory secretary 2 at 13:47 [email or web address] 01:47 PM Case Delayed No 2 01:47 PM Time: 13:47 Patient comfortable and pain free: Yes 2 01:48 PM Time: 13:47LOC: 5 = Fully awake and oriented or at pre-proc level [email or web address] 01:48 PM CathStat 01:49 PM Physician arrived 13:49 [email or web address] 01:49 PM ASA Class CLASS III- Severe systemic disease (i.e. prior AMI, diabetes with vascular complications, morbid obesity) [email or web address] 01:49 PM Meet and tay completed [email or web address] 13:49 PM Sign in performed according to hospital policy. Informed consent was obtained. [email or web address] 01:50 PM Procedure start 13:49 [email or web address] 01:50 PM Time: 13:50 Oxygen on at 6 L/min per nasal cannula by Shivam Marte RN [email or web address] 01:52 PM Hair removed from procedure site in procedure lab using clippers. Bilateral groin prepped with Chloraprep by Destinee Junior (R), then patient was draped. Skin intact. [email or web address] 01:54 PM Vitals capture started with the following parameters, Patient=Adult, Interval=5 min, Initial Iicvpenq=361 mmHg, Deflation Rate=5 mmHg, Cuff placed on Right Arm 01:55 PM Vitals capture stopped. 01:55 PM Vitals capture started with the following parameters, Patient=Adult, Interval=5 min, Initial Mlfmztrq=806 mmHg, Deflation Rate=5 mmHg, Cuff placed on Right Arm 01:57 PM Recorded ECG: HR=14 Condition=Condition 1 01:57 PM HR=55 bpm, NIBP=85/40 mmhg, SpO2=80.0 % 01:58 PM NIBP STAT measurement started. 01:59 PM HR=47 bpm, NIBP=98/28 mmhg, SpO2=78.0 % 02:01 PM Time out was performed according to hospital policy. Conscious sedation and anesthesia was achieved (see medication log with in this report above) bw 02:03 PM Time: 13:47 Patient comfortable and pain free: Yes [email or web address] 02:03 PM Time: 13:48LOC: 5 = Fully awake and oriented or at pre-proc level [email or web address] 02:03 PM Vitals capture stopped. 02:03 PM Time: 14:03 2 ml Lidocaine 2% to right groin Subcutaneous Given by Jair Cardoso MD, [facility] [email or web address] 02:03 PM Vitals capture started with the following parameters, Patient=Adult, Interval=5 min, Initial Mbsbhryw=500 mmHg, Deflation Rate=5 mmHg, Cuff placed on Right Arm 02:04 PM Access obtained by percutaneous puncture. 7Fr 10cm [facility] [employer] Ultimum sheath placed in right Femoral vein. [id number] [email or web address] 02:05 PM Time: 14:05 Oxygen on at 6 L/min per Oxy Mask by Shivam Marte RN ilson 02:05 PM PstProc:Bard Bipolar Pacing Catheter Temp pacer inserted into right femoral vein [email or web address] 02:05 PM HR=48 bpm, FOHL=066/83 mmhg, SpO2=77.0 % 02:08 PM PstProc: Temp pacer on. 02:08 PM Recorded ECG: HR=80 Condition=Condition 1 02:09 PM Recorded ECG: HR=69 Condition=Condition 1 02:09 PM HR=69 bpm, MZIE=801/60 mmhg, SpO2=82.0 %, Resp=11 B/min 02:09 PM PstProc: Temp pacer turned on, rate 70 ppm, mA , sensitivity 10 [email or web address] 02:09 PM PstProc: Sheath(s) sutured in due to Venous access. [email or web address] 02:13 PM PstProc: Pacer is inserted at 72 cm bw 02:14 PM HR=69 bpm, TYUL=013/53 mmhg, SpO2=89.0 %, Resp=9 B/min 02:15 PM Procedure completed at 14:15 01/13/2018 [email or web address] 02:16 PM Sign out completed: Radiation Dose 193.77 mGy, 2910.29 cGy/cm2 Fluoro Time: 3.5 Isovue 370 - 200ml contrast ml given by Jair Cardoso MD, [facility]. Complications: None. 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 Cardiac Rehab Consult needed: NoConfirmed administered medications: Yes 2 02:16 PM Estimated Blood Loss: minimal 02:16 PM Post ECG Paced [email or web address] 02:16 PM Post Blood Pressure 129/53 [email or web address] 02:17 PM 14:17 Post Pulses Bilateral DP & PT 1+ [email or web address] 02:17 PM Information taught Temporary pacemaker [email or web address] 02:18 PM Time: 14:03LOC: 5 = Fully awake and oriented or at pre-proc level [email or web address] 02:18 PM Time: 14:03 Patient comfortable and pain free: Yes [email or web address] 02:18 PM Education needs Procedure, Plan of Care, and Disease Process [email or web address] 02:18 PM Learning barriers :Cognitive [email or web address] 02:18 PM Education Methods Verbal [email or web address] 02:18 PM Education evaluation Needs further instruction [email or web address] 02:18 PM Site status No bleeding/hematoma - Rt Groin as reported by Destinee Junior RT (R) at 14:18 [email or web address] 02:18 PM Opsite applied [email or web address] 02:18 PM Delay to floor No [email or web address] 02:18 PM Family placed in consult room. [email or web address] 02:18 PM Complications: None [email or web address] 02:19 PM HR=69 bpm, RGAV=759/54 mmhg, SpO2=89.0 %, Resp=9 B/min 02:22 PM Vitals capture stopped. 02:24 PM Report given to jeanine RUSS Pt taken to ICU Room #7. 14:23 [email or web address] 02:28 PM Patient out of room: 14:28 [email or web address] Complications Complication None None Hemodynamics Post Procedure Information Blood Pressure: 129/53 mmHg Rhythm: Paced Post procedural instructions were given Site Checks Time Location Status Staff Sheath In? Note 02:18 PM Rt Groin No bleeding/hematoma Destinee Junior RT (R) Pulses Time Site Pre-Procedure Post-Procedure Note 01/13/2018 11:00:00 PM Bilateral DP & PT 1+ 2:17:00 PM Bilateral DP & PT 1+ Updated by Jered Morgan RT (R) on 01/13/2018 2:29:34 PM Jered Morgan RT electronically signed on 01/13/2018 2:29:57 PM with status of Final
--- NOTE | 2018-01-13 15:14 | Pre-Sedation Evaluation ---
Pre-sedation evaluation - Pre-sedation checklist Date of procedure: 01/13/18 Procedure: y90 Radioembolization Recent Vitals: Last Vital Signs Temp 96.0 F L 01/13/18 14:55 Pulse 0 01/13/18 14:55 Resp 18 01/13/18 14:55 BP 96/48 01/13/18 14:55 Pulse Ox 95 01/13/18 14:55 H&P (including ROS) documented in medical record: Yes Previous reaction to sedatives/anesthetics: Yes; explain in comment Dietary Status: NPO 6 hours prior to procedure Airway Assessment: Patient can open mouth completely, TMJ function normal, Micrognathia (under-bite, receding chin) absent, Neck with adequate range of motion Possible difficult airway: No ASA Classification *see protocol: CLASS III-Severe systemic disease Plan of Care: Pt appropriate candidate for procedure/moderate/conscious sedation, Risks/benefits of procedure/sedation discussed w/ patient/family, If not NPO; Risk of intake outweiged by necessity to perform procedure
--- NOTE | 2018-01-13 15:15 | History & Physical Report ---
Date of Encounter: 01/13/18 Time of Encounter: 08:45 24 Hour HP Update - Instructions Instructions: If the History and Physical is less than 30 days old and was completed prior to A.M. admission and or procedure and has NOT been updated on calendar day of procedure please complete this update prior to performing procedure. - Update Patient reports changes in Medical Condition: No Changes in examination, assessment, or condition: No Changes in Medication: No Preop tests/diagnostics Reviewed: Yes Surgery Remains Indicated: Yes Consent for Planned Operative Procedure(s) Verified: Yes - Pre-Operative Checklist Preoperative Checklist Indicated: Yes Prophylactic Antibiotic Ordered: Yes Home Medications Include Beta Rodolfo: No Beta Rodolfo Taken Today (Day of Surgery): No Beta Rodolfo Taken Yesterday (Day Prior to Surgery): No Is VTE Prophylaxis Indicated?: NO
--- NOTE | 2018-01-13 15:17 | IR Procedure Note ---
Date of procedure: 01/13/18 Consent Obtained: Written consent Timeout: Correct patient and procedure verified, Correct site verified, Time out performed, Skin prep completed Local anesthetic: Lidocaine 1% Indications: Multifocal HCC, cirrhosis, CAD/CABG,CHF,HTN,DM,CKD Procedure Performed: Y90 radioembolization of right hepatic lobe. Was there an medical billing assistant present: No Site/Technique: Right groin access. Other than chronic neck/back pain, tolerated well. Results/Findings: Whole dose delivered. No intra-procedural issues. Estimated blood loss (cc): 3 Complications: None; Tolerated procedure well Post Procedure Treatment Plan: Monitoring overnight for observation.D/w Dr. Staley re cardiac issues and DM Specimen: n/a
--- NOTE | 2018-01-13 16:40 | Electrocardiograph Report ---
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
[2018-01-13] MEDS ORDERED: Insulin LISPRO 300 UNITS/3 ML VIAL SQ SCH (18:00)
[2018-01-13] MEDS ORDERED: *HR* Heparin 5,000 UNIT/ML VIAL SQ SCH (18:00)
[2018-01-13] MEDS: Insulin LISPRO 300 UNITS/3 ML VIAL SQ SCH ×2 (20:36→23:36)
[2018-01-14] MEDS: Insulin LISPRO 300 UNITS/3 ML VIAL SQ SCH ×4 (05:22→16:31)
[2018-01-14 05:48] LABS: Red Cell Distribution Width 15.1 % (11.5-14.5)
[2018-01-14 05:50] LABS: Hematocrit 38.6 % (37.5-50.1); Hemoglobin 12.3 g/dL (12.9-16.9); Immature Granulocytes % 0.6 % (0-4); Immature Platelets 4.6 % (1.1-6.1); Lymphocytes # 0.6 K/mcL (0.6-4.6); Lymphocytes % 7.8 %; Mean Corpuscular HGB Conc 31.9 g/dL (31.6-35.5); Mean Corpuscular Hemoglobin 30.4 pg (28.0-33.3); Mean Corpuscular Volume 95.5 fL (83.0-100.0); Mean Platelet Volume 11.2 fL (9.4-12.4); Monocytes # 0.5 K/mcL (0.0-1.3); Monocytes % 6.6 %; Red Blood Count 4.04 M/mcL (4.19-5.50)
[2018-01-14 06:00] LABS: Platelet Count 97 K/mcL (140-400)
[2018-01-14 06:08] LABS: Albumin 3.7 g/dL (3.5-5.7); Albumin/Globulin Ratio 0.9 (1.1-2.2); Bilirubin,Total 0.7 mg/dL (0.3-1.0); Calcium 9.3 mg/dL (8.6-10.3); Magnesium 2.1 mg/dL (1.6-2.6); Potassium 6.3 mEq/L (3.5-5.1); Total Protein 7.7 g/dL (6.4-8.9)
--- NOTE | 2018-01-14 07:01 | Pulmonology Progress Note ---
Date of Encounter: 01/14/18 Objective PUL Vital signs: Last Vital Signs Temp 97.8 F 01/14/18 04:23 Pulse 70 01/14/18 06:00 Resp 12 01/14/18 06:00 BP 123/55 01/14/18 06:00 Pulse Ox 94 01/14/18 06:00 Results - Laboratory Findings CBC and BMP: 01/14/18 05:38 01/14/18 05:38 PT/INR, D-dimer PT 15.0 Seconds (9.4-12.1) H 01/13/18 07:36 Abnormal lab findings: Abnormal lab results RBC 4.04 M/mcL (4.19-5.50) L 01/14/18 05:38 Hgb 12.3 g/dL (12.9-16.9) L 01/14/18 05:38 RDW 15.1 % (11.5-14.5) H 01/14/18 05:38 Plt Count 97 K/mcL (140-400) L 01/14/18 05:38 PT 15.0 Seconds (9.4-12.1) H 01/13/18 07:36 Sodium 129 mEq/L (136-145) L 01/14/18 05:38 Potassium 6.3 mEq/L (3.5-5.1) H 01/14/18 05:38 BUN 56 mg/dL (8-23) H 01/14/18 05:38 Creatinine 2.27 mg/dL (0.70-1.30) H 01/14/18 05:38 Est GFR ( Amer) 34 (> 60) L 01/14/18 05:38 Est GFR (Non-Af Amer) 28 (> 60) L 01/14/18 05:38 Glucose 182 mg/dL (70-105) H 01/14/18 05:38 POC Glucose 307 mg/dL (70-99) H 01/13/18 23:33 Direct Bilirubin 0.3 mg/dL (0.0-0.2) H 01/13/18 07:36 Troponin I 1.12 ng/mL (< 0.04) H* 01/14/18 05:38 Globulin 4.0 g/dL (2.4-3.5) H 01/14/18 05:38 Albumin/Globulin Ratio 0.9 (1.1-2.2) L 01/14/18 05:38 - Clinical Findings Intake & Output: Intake & Output 01/13/18 01/13/18 01/14/18 15:59 23:59 07:59 Intake Total 0 / 0 510 / 510 550 / 550 Balance 0 / 0 510 / 510 550 / 550 Weight 104.326 kg 108.5 kg Consult Discharge Plan - Plan Referrals: Jeronimo Wu MD [Primary Care Provider] -
[2018-01-14] MEDS: *HR* OxyCODONE/APAP 10/325 TABLET PO PRN ×2 (07:59→16:31)
--- NOTE | 2018-01-14 08:16 | Discharge Summary ---
<StaciRaina M - Last Filed: 01/14/18 09:20> Orders not resulted at time of discharge: Pending orders 01/13/18 13:31 CL Temporary Pacemaker [CL] Stat 01/14/18 12:00 Troponin I Q6H 01/14/18 18:00 Troponin I Q6H Date of Encounter: 01/14/18 - Discharge Medications Home Medications: Insulin Aspart Prot/Insuln Asp [Novolog Mix 70-30 Flexpen Syrn] 20 unit SQ BID 11/21/14 [History] Nitroglycerin [Nitrostat] 0.4 mg SL PRN PRN 11/21/14 [History] diazePAM [Valium] 5 mg PO BID PRN 06/21/15 [History] Isosorbide DInitrate [Isosorbide Dinitrate] 30 mg PO BID 02/15/17 [History] Captopril [Capoten] 50 mg PO BID 04/15/17 [History] Potassium Chloride [Klor-Con 10] 20 meq PO BID 04/15/17 [History] Cholecalciferol (D-3) [Vitamin D] 1,000 unit PO BID 07/29/17 [History] Furosemide [Lasix] 40 mg PO BID 07/29/17 [History] Diltiazem HCl [Cardizem] 30 mg PO DAILY 11/24/17 [History] Allergies/Adverse Reactions: Allergy/AdvReac Type Severity Reaction Status Date / Time atenolol Allergy Rash Verified 08/04/17 10:29 carvedilol [From Coreg] AdvReac Unknown Gastrointestinal Verified 08/04/17 10:29 Upset Penicillins AdvReac Unknown Blister Verified 08/04/17 10:29 IVP dye Allergy Difficulty Uncoded 10/16/17 11:54 Breathing Labs on day of discharge: Labs from last 24 hours 01/14/18 01/14/18 01/14/18 07:33 05:38 05:38 WBC 8.2 D RBC 4.04 L Hgb 12.3 L Hct 38.6 MCV 95.5 MCH 30.4 MCHC 31.9 RDW 15.1 H Plt Count 97 L MPV 11.2 Immature Gran % 0.6 Seg Neutrophils % 85.0 Lymphocytes % 7.8 Monocytes % 6.6 Eosinophils % 0.0 Basophils % 0.0 Neutrophils # 7.0 Lymphocytes # 0.6 Monocytes # 0.5 Eosinophils # 0.0 Basophils # 0.0 Immature Plt Fraction 4.6 Sodium Potassium Chloride Carbon Dioxide BUN Creatinine Est GFR ( Amer) Est GFR (Non-Af Amer) BUN/Creatinine Ratio Glucose POC Glucose 188 H Calculated Osmolality Calcium Magnesium Total Bilirubin AST ALT Alkaline Phosphatase Troponin I 1.12 H* Serum Total Protein Albumin Globulin Albumin/Globulin Ratio TSH 01/14/18 01/14/18 01/13/18 05:38 00:07 23:33 WBC RBC Hgb Hct MCV MCH MCHC RDW Plt Count MPV Immature Gran % Seg Neutrophils % Lymphocytes % Monocytes % Eosinophils % Basophils % Neutrophils # Lymphocytes # Monocytes # Eosinophils # Basophils # Immature Plt Fraction Sodium 129 L Potassium 6.3 H Chloride 98 Carbon Dioxide 25 BUN 56 H Creatinine 2.27 H Est GFR ( Amer) 34 L Est GFR (Non-Af Amer) 28 L BUN/Creatinine Ratio 25 Glucose 182 H POC Glucose 307 H Calculated Osmolality 288 Calcium 9.3 Magnesium 2.1 Total Bilirubin 0.7 AST 26 ALT 25 Alkaline Phosphatase 93 Troponin I 0.87 H* Serum Total Protein 7.7 Albumin 3.7 Globulin 4.0 H Albumin/Globulin Ratio 0.9 L TSH 01/13/18 01/13/18 01/13/18 18:42 16:32 16:31 WBC RBC Hgb Hct MCV MCH MCHC RDW Plt Count MPV Immature Gran % Seg Neutrophils % Lymphocytes % Monocytes % Eosinophils % Basophils % Neutrophils # Lymphocytes # Monocytes # Eosinophils # Basophils # Immature Plt Fraction Sodium Potassium Chloride Carbon Dioxide BUN Creatinine Est GFR ( Amer) Est GFR (Non-Af Amer) BUN/Creatinine Ratio Glucose POC Glucose 510 H* 464 H* Calculated Osmolality Calcium Magnesium Total Bilirubin AST ALT Alkaline Phosphatase Troponin I 0.32 H* Serum Total Protein Albumin Globulin Albumin/Globulin Ratio TSH 01/13/18 01/13/18 01/13/18 12:21 12:21 12:19 WBC 4.5 RBC 4.01 L Hgb 12.1 L Hct 38.1 MCV 95.0 MCH 30.2 MCHC 31.8 RDW 14.7 H Plt Count 119 L MPV 11.9 Immature Gran % 0.2 Seg Neutrophils % 84.8 Lymphocytes % 12.6 Monocytes % 2.2 Eosinophils % 0.0 Basophils % 0.2 Neutrophils # 3.8 Lymphocytes # 0.6 Monocytes # 0.1 Eosinophils # 0.0 Basophils # 0.0 Immature Plt Fraction Sodium 128 L Potassium 5.4 H Chloride 97 L Carbon Dioxide 20 L BUN 42 H Creatinine 1.89 H Est GFR ( Amer) 42 L Est GFR (Non-Af Amer) 35 L BUN/Creatinine Ratio 22 Glucose 502 H* POC Glucose 510 H* Calculated Osmolality 299 Calcium 9.3 Magnesium 2.0 Total Bilirubin AST ALT Alkaline Phosphatase Troponin I 0.05 H* Serum Total Protein Albumin Globulin Albumin/Globulin Ratio TSH 2.655 01/13/18 12:16 WBC RBC Hgb Hct MCV MCH MCHC RDW Plt Count MPV Immature Gran % Seg Neutrophils % Lymphocytes % Monocytes % Eosinophils % Basophils % Neutrophils # Lymphocytes # Monocytes # Eosinophils # Basophils # Immature Plt Fraction Sodium Potassium Chloride Carbon Dioxide BUN Creatinine Est GFR ( Amer) Est GFR (Non-Af Amer) BUN/Creatinine Ratio Glucose POC Glucose 471 H* Calculated Osmolality Calcium Magnesium Total Bilirubin AST ALT Alkaline Phosphatase Troponin I Serum Total Protein Albumin Globulin Albumin/Globulin Ratio TSH - Impressions ITS Impressions Abdomen Arteriogram 01/13/18 00:00 IMPRESSION: Successful delivery of the radioactive Y90 microspheres to the side hepatic artery. D/ / 01/13/2018 16:43:33 Carlos Dennis MD / shawn Interpreting Provider: Carlos Dennis MD Embolization 01/13/18 00:00 IMPRESSION: Successful delivery of the radioactive Y90 microspheres to the side hepatic artery. D/ / 01/13/2018 16:43:33 Carlos Dennis MD / shawn Interpreting Provider: Carlos Dennis MD Embolization 01/13/18 00:00 IMPRESSION: Successful delivery of the radioactive Y90 microspheres to the side hepatic artery. D/ / 01/13/2018 16:43:33 Carlos Dennis MD / shawn Interpreting Provider: Carlos Dennis MD Guidance Ultrasound 01/13/18 00:00 IMPRESSION: Successful delivery of the radioactive Y90 microspheres to the side hepatic artery. D/ / 01/13/2018 16:43:33 Carlos Dennis MD / shawn Interpreting Provider: Carlos Dennis MD Date of admission: 01/13/18 18:38 Primary care physician: Jeronimo Wu MD Consults: 01/13/18 12:30 Consult to Cardiology [CONS] Stat Comment: Consulting Provider: [facility] [place] Reason for Consult: Bradycardia Call Completed: Yes Consult to Critical Care [CONS] Stat Consulting Provider: [facility] Reason for Consult: Bradycardia Call Completed: Yes - Patient Status Disposition: Transfer Critical Access Hosp Condition: Fair - Discharge Instructions Follow Up With: Jeronimo Wu MD [Primary Care Provider] - - Hospital Course Hospital course: Mr. Crouch is a 72 year old male - Time Spent with Patient Total time spent providing and/or coordinating discharge services: Physical Examination Vital Signs: Vital Signs, Last 4 Hours Temp Pulse Resp BP Pulse Ox 01/14/18 07:37 97.6 F 01/14/18 07:00 70 12 130/60 93 01/14/18 06:00 70 12 123/55 94 - Attending Attestation I examined this patient and my medical decision-making was reviewed with the Resident Physician. I agree with the documented findings, disposition and treatment plan as described except to the extent set forth below. Patient seen and examined. Labs, radiology, chart personally reviewed. 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 <Surinder Brennan - Last Filed: 01/14/18 09:50> Orders not resulted at time of discharge: Pending orders 01/13/18 13:31 CL Temporary Pacemaker [CL] Stat 01/14/18 12:00 Troponin I Q6H 01/14/18 18:00 Troponin I Q6H Date of Encounter: 01/14/18 Time of Encounter: 06:45 - Discharge Diagnosis (1) Bradycardia Priority: Primary Status: Acute (2) Hepatocellular carcinoma Priority: Secondary Status: Chronic (3) Acute kidney injury superimposed on CKD Priority: Secondary Status: Acute (4) Chronic diastolic heart failure Priority: Secondary Status: Chronic (5) Thrombocytopenia Priority: Secondary Status: Acute (6) Hyperglycemia Priority: Secondary Status: Acute (7) MDS (myelodysplastic syndrome), low grade Priority: Secondary Status: Chronic (8) Cirrhosis Priority: Secondary Status: Chronic Qualifiers: Hepatic cirrhosis type: alcoholic cirrhosis Ascites presence: unspecified Qualified Code(s): K70.30 - Alcoholic cirrhosis of liver without ascites (9) Hyperkalemia Priority: Secondary Status: Acute (10) HTN (hypertension) Priority: Secondary Status: Chronic Qualifiers: Hypertension type: essential hypertension Qualified Code(s): I10 - Essential (primary) hypertension Labs on day of discharge: Labs from last 24 hours 01/14/18 01/14/18 01/14/18 07:33 05:38 05:38 WBC 8.2 D RBC 4.04 L Hgb 12.3 L Hct 38.6 MCV 95.5 MCH 30.4 MCHC 31.9 RDW 15.1 H Plt Count 97 L MPV 11.2 Immature Gran % 0.6 Seg Neutrophils % 85.0 Lymphocytes % 7.8 Monocytes % 6.6 Eosinophils % 0.0 Basophils % 0.0 Neutrophils # 7.0 Lymphocytes # 0.6 Monocytes # 0.5 Eosinophils # 0.0 Basophils # 0.0 Immature Plt Fraction 4.6 Sodium Potassium Chloride Carbon Dioxide BUN Creatinine Est GFR ( Amer) Est GFR (Non-Af Amer) BUN/Creatinine Ratio Glucose POC Glucose 188 H Calculated Osmolality Calcium Magnesium Total Bilirubin AST ALT Alkaline Phosphatase Troponin I 1.12 H* Serum Total Protein Albumin Globulin Albumin/Globulin Ratio TSH 01/14/18 01/14/18 01/13/18 05:38 00:07 23:33 WBC RBC Hgb Hct MCV MCH MCHC RDW Plt Count MPV Immature Gran % Seg Neutrophils % Lymphocytes % Monocytes % Eosinophils % Basophils % Neutrophils # Lymphocytes # Monocytes # Eosinophils # Basophils # Immature Plt Fraction Sodium 129 L Potassium 6.3 H Chloride 98 Carbon Dioxide 25 BUN 56 H Creatinine 2.27 H Est GFR ( Amer) 34 L Est GFR (Non-Af Amer) 28 L BUN/Creatinine Ratio 25 Glucose 182 H POC Glucose 307 H Calculated Osmolality 288 Calcium 9.3 Magnesium 2.1 Total Bilirubin 0.7 AST 26 ALT 25 Alkaline Phosphatase 93 Troponin I 0.87 H* Serum Total Protein 7.7 Albumin 3.7 Globulin 4.0 H Albumin/Globulin Ratio 0.9 L TSH 01/13/18 01/13/18 01/13/18 18:42 16:32 16:31 WBC RBC Hgb Hct MCV MCH MCHC RDW Plt Count MPV Immature Gran % Seg Neutrophils % Lymphocytes % Monocytes % Eosinophils % Basophils % Neutrophils # Lymphocytes # Monocytes # Eosinophils # Basophils # Immature Plt Fraction Sodium Potassium Chloride Carbon Dioxide BUN Creatinine Est GFR ( Amer) Est GFR (Non-Af Amer) BUN/Creatinine Ratio Glucose POC Glucose 510 H* 464 H* Calculated Osmolality Calcium Magnesium Total Bilirubin AST ALT Alkaline Phosphatase Troponin I 0.32 H* Serum Total Protein Albumin Globulin Albumin/Globulin Ratio TSH 01/13/18 01/13/18 01/13/18 12:21 12:21 12:19 WBC 4.5 RBC 4.01 L Hgb 12.1 L Hct 38.1 MCV 95.0 MCH 30.2 MCHC 31.8 RDW 14.7 H Plt Count 119 L MPV 11.9 Immature Gran % 0.2 Seg Neutrophils % 84.8 Lymphocytes % 12.6 Monocytes % 2.2 Eosinophils % 0.0 Basophils % 0.2 Neutrophils # 3.8 Lymphocytes # 0.6 Monocytes # 0.1 Eosinophils # 0.0 Basophils # 0.0 Immature Plt Fraction Sodium 128 L Potassium 5.4 H Chloride 97 L Carbon Dioxide 20 L BUN 42 H Creatinine 1.89 H Est GFR ( Amer) 42 L Est GFR (Non-Af Amer) 35 L BUN/Creatinine Ratio 22 Glucose 502 H* POC Glucose 510 H* Calculated Osmolality 299 Calcium 9.3 Magnesium 2.0 Total Bilirubin AST ALT Alkaline Phosphatase Troponin I 0.05 H* Serum Total Protein Albumin Globulin Albumin/Globulin Ratio TSH 2.655 01/13/18 12:16 WBC RBC Hgb Hct MCV MCH MCHC RDW Plt Count MPV Immature Gran % Seg Neutrophils % Lymphocytes % Monocytes % Eosinophils % Basophils % Neutrophils # Lymphocytes # Monocytes # Eosinophils # Basophils # Immature Plt Fraction Sodium Potassium Chloride Carbon Dioxide BUN Creatinine Est GFR ( Amer) Est GFR (Non-Af Amer) BUN/Creatinine Ratio Glucose POC Glucose 471 H* Calculated Osmolality Calcium Magnesium Total Bilirubin AST ALT Alkaline Phosphatase Troponin I Serum Total Protein Albumin Globulin Albumin/Globulin Ratio TSH - Impressions ITS Impressions Abdomen Arteriogram 01/13/18 00:00 IMPRESSION: Successful delivery of the radioactive Y90 microspheres to the side hepatic artery. D/ / 01/13/2018 16:43:33 Carlos Dennis MD / shawn Interpreting Provider: Carlos Dennis MD Embolization 01/13/18 00:00 IMPRESSION: Successful delivery of the radioactive Y90 microspheres to the side hepatic artery. D/ / 01/13/2018 16:43:33 Carlos Dennis MD / shawn Interpreting Provider: Carlos Dennis MD Embolization 01/13/18 00:00 IMPRESSION: Successful delivery of the radioactive Y90 microspheres to the side hepatic artery. D/ / 01/13/2018 16:43:33 Carlos Dennis MD / shawn Interpreting Provider: Carlos Dennis MD Guidance Ultrasound 01/13/18 00:00 IMPRESSION: Successful delivery of the radioactive Y90 microspheres to the side hepatic artery. D/ / 01/13/2018 16:43:33 Carlos Dennis MD / shawn Interpreting Provider: Carlos Dennis MD Date of admission: 01/13/18 18:38 Primary care physician: eJronimo Wu MD Consults: 01/13/18 12:30 Consult to Cardiology [CONS] Stat Comment: Consulting Provider: [facility] [place] Reason for Consult: Bradycardia Call Completed: Yes Consult to Critical Care [CONS] Stat Consulting Provider: [facility]m [facility] Reason for Consult: Bradycardia Call Completed: Yes - Patient Status Functional capacity at discharge: bed bound Overall status at discharge: patient is not back to baseline - Diet and Activity Activity: as per the cardiac rehab Diet: other (As per specialist at [facility]) - Hospital Course Hospital course: Mr. Crouch is a 72 year old male with history of CAD status post CABG, aortic valve replacement, diabetes mellitus, cirrhosis, hepatocellular carcinoma status post radioactive seeding, thrombocytopenia who presented to the hospital yesterday for IR placement of radioactive seeding of hepatocellular carcinoma tumor in the liver and developed a high-grade heart block following the procedure. At that time a rapid response was called due to severe bradycardia with hemodynamic instability and the patient received multiple doses of atropine in order to stabilize. The direct cause of the patient's development of bradycardia was unknown, however he is on beta blockers and Cardizem so there was suspicion that maybe there was a medication-induced effect. He did receive glucagon which was not helpful. Ultimately the patient did require transcutaneous pacing and then additionally required placement of a temporary venous pacemaker. There was a discussion about evaluation for placement of a permanent place maker, however the patient stated that he would prefer to discuss this with his primary rn womens health, Dr. Shearer, at [facility] in [place]. Overnight the patient also developed worsening hyperkalemia with worsening acute renal failure, likely secondary to cardiogenic shock during episode of acute heart block. As the patient's heart block continued overnight and into the morning, we discussed the patient's options and he decided that he would again like to seek transfer to [facility]. The patient was accepted for transfer and is now pending placement. - Time Spent with Patient Total time spent providing and/or coordinating discharge services: Greater than 30 minutes Physical Examination Vital Signs: Vital Signs, Last 4 Hours Temp Pulse Resp BP Pulse Ox 01/14/18 07:37 97.6 F 01/14/18 07:00 70 12 130/60 93 01/14/18 06:00 70 12 123/55 94 01/14/18 05:00 70 18 112/58 94 01/14/18 04:23 97.8 F Gen: Vitals noted. No acute distress. Eyes: anicteric sclerae, moist conjunctivae; no lid-lag; Pupils equal and reactive to light HENT: Atraumatic; oropharynx clear with moist mucous membranes and no mucosal ulcerations; normal hard and soft palate Neck: Trachea midline; supple, no thyromegaly or lymphadenopathy Cardiac: RRR, no murmur, +S1/S2 Pulmonary: CTA bilaterally, minimally diminished Abdomen: Generally distended, tenderness to palpation specifically in the right upper and lower quadrant with tenderness with palpation to the liver MSK: ROM intact, no joint swelling noted Extremities: 1+ bilateral lower extremity edema, nontender calf, no cyanosis or clubbing Skin: Normal temperature, turgor and texture; no rash, ulcers or subcutaneous nodules Neuro: moves all extremities, no focal deficits. Psych: Appropriate mood and behavior. A&Ox3
[2018-01-14] MEDS ORDERED: diazePAM 5 MG TABLET PO PRN (09:07)
[2018-01-14] MEDS ORDERED: Insulin Human Regular 10 UNIT in 0.9 % Sodium Chloride 10 ML IV ONE (09:10)
[2018-01-14] MEDS ORDERED: *HR* Dextrose 50 % in Water (Syg) 50 ML SYRINGE IVP ONE (09:10)
--- NOTE | 2018-01-14 14:44 | Electrocardiograph Report ---
[address] [place] [address] Test Date: 2018-01-14 Pat Name: Jair Crouch Department: 112 Room: 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
[2018-01-14 17:11] VITALS: BP 127/63
== END 2018-01-14 18:44 | disposition other institution (70) | DRG 435 ==
LOC: 3ANU 07:24 → INTRAD 07:24 → ICNU 12:08
PROVIDERS: ADMIT Internal Medicine; ATTEND Internal Medicine